=== PATIENT | male | born 1985 | race Caucasian/White ===

== ENCOUNTER → 2023-01-03 10:35 | Outpatient (CLI) | payer OTHER, SELFPAY ==
--- NOTE | ~2023-01-03 | US_ITS ---
EXAMINATION: US scrotum doppler DATE: 01/03/2023 11:27 INDICATION: Right testicular pain. TECHNIQUE: Grayscale and Doppler ultrasound images of the testes were obtained. COMPARISON: None. FINDINGS: The right testis measures 4.6 x 2.2 x 2.7 cm. The left testis measures 4.8 x 2.5 x 2.2 cm. There is normal vascular flow to both testes. The right epididymis demonstrates an 8 mm cyst. The lef t epididymis demonstrates a 3 mm cyst. There is normal vascular flow in the epididymides. There is no varicocele or hydrocele. IMPRESSION: 1. Normal testes. Reviewed, dictated and finalized at location A. IMPRESSION: 1. Normal testes.
--- NOTE | ~2023-01-03 | US_ITS ---
EXAMINATION: US abdomen complete DATE: 01/03/2023 11:27 INDICATION: Early satiety. Nausea. TECHNIQUE: Multiple grayscale and Doppler ultrasound images of the abdomen were obtained. COMPARISON: None FINDINGS: Abdominal aorta is normal in caliber. Inferior vena cava is normal. The visualized portions of the head, body, and tail of the pancreas are normal. The liver is normal without focal lesion. Th ere is normal flow in main portal vein. The gallbladder is normal in size. No gallstones or gallbladd er wall thickening. There is a comet-tail artifact in the gallbladder wall, consistent with adenomyom atosis. There is no sonographic Alexis sign. The common duct is normal and measures 4 mm. The spleen is normal in size. The kidneys are normal in size. IMPRESSION: 1. No etiology for the patient's symptoms. Reviewed, dictated and finalized at location A.
== END ==
PROVIDERS: PCP Emergency Medicine; Visit Provider Emergency Medicine
DX: N50.811 Right testicular pain (principal)
CPT/HCPCS: 76700; 76870; 93976

== ENCOUNTER 2023-12-23 09:28 | Day surgery (SDC) | payer OTHER, SELFPAY ==
[2023-12-04 08:28] VITALS: BMI 22.6
--- NOTE | 2023-12-23 07:48 | WPDANESEPPF ---
Anes - Initial Pre Proc Eval Procedure: Operation Date: 12/23/23 12:00 Proposed Procedures p Esophagogastroduodenoscopy - Mikey Klein MD s Diagnostic Colonoscopy - Mikey Klein MD Date/Time: 12/23/23 07:48 Surgeon: Mikey Klein MD Pre Op Diagnosis: IBS diarrhea, early satiety Patient Data Age: 38 Gender: M Height: 1.68 m Weight: 63.503 kg Allergies Allergy/AdvReac Type Severity Reaction Status Date / Time No Known Allergies Allergy Verified 12/23/23 10:32 Home Medications Medication Instructions Recorded Confirmed Type multivitamin 1 tablet PO DAILY 12/09/23 12/23/23 History Patient hx anesthesia problems: none Family hx anesthesia problems: none Results Review: All pre-operative results and documents have been reviewed as part of the pre-operative evaluation. [facility] Social History Social History Smoking status: Current every day smoker Tobacco type: e-cigarettes/vaping Substance use: current Substance use type: marijuana Other substance usage details: daily Anes - Eval Final PreProcedure Day of Procedure 12/23/23 07:48 Patient weight: normal Heart: regular rate and rhythm Lungs: clear to auscultation and normal air movement Airway: Mallampati scale class II Neurological: alert and oriented Last oral intake: >/= 8 hours ASA classification: II Emergent: no Anesthetic plan: proceed Anesthesia type and monitoring: general GIVS and standard monitoring Results Review: All pre-operative results and documents have been reviewed as part of the pre-operative evaluation. Informed Consent: The patient's anesthetic plan and its attendant risks and benefits were discussed with the patient/family/POA. Questions were solicited and answers provided to the satisfaction of the patient/family/POA.
[2023-12-23 10:45] VITALS: BP 123/71; PULSE 84; RESP 16; TEMP 37; O2SAT 98; BMI 23.0
[2023-12-23] MEDS: LACTATED RINGERS 1,000 ML 150 ML IV CONT (11:07)
--- NOTE | 2023-12-23 11:20 | P.HP_ITS ---
History of Present Illness History of Present Illness Consent: Risks, benefits, and alternatives have been discussed and questions answered. Patient agrees to proceed with procedure. Chief complaint: IBS diarrhea, early satiety Narrative: Humphrey Brantley is a 38 year old male referred for both colonoscopy and EGD. patient reports extended periods of her appetite and early satiety associated with weight loss. Sometimes these episodes will last for months. Then he will feel better for many months. Apparently this cycle is been present for several years. Patient reports being under significant stress associated with anxiety. Patient is referred now for both colonoscopy and EGD to assess more thoroughly. He reports irregular bowel movements suggesting underlying irritable bowel syndrome. He denies any significant bleeding. Although old had 1 episode months. Review of Systems Review of Systems: All systems reviewed & are unremarkable except as noted in HPI and below PMFSH Social History Social History Smoking status: Current every day smoker Tobacco type: e-cigarettes/vaping Substance use: current Substance use type: marijuana Other substance usage details: daily Meds Home Medications and Allergies Home Medications Medication Instructions Recorded Confirmed Type multivitamin 1 tablet PO DAILY 12/09/23 12/23/23 History Allergies Allergy/AdvReac Type Severity Reaction Status Date / Time No Known Allergies Allergy Verified 12/23/23 10:32 Vital Signs Vital Signs - 24 hr 12/23/23 10:45 Temperature 98.6 F Pulse Rate 84 Respiratory Rate 16 Blood Pressure 123/71 Pulse Oximetry 98 Oxygen Delivery Room Air Exam Narrative: Physical exam reveals patient vital signs stable. HEENT exam is unremarkable. Patient is anicteric. Is are clear to auscultation and to percussion. Extra sounds. Abdomen bowel sounds are present soft nontender with no hepatosplenomegaly. Digital external rectal exam is normal. Assessment and Plan Assessment and plan (1) History of IBS: Code(s): Z87.19 - Personal history of other diseases of the digestive system Status: Acute Assessment and Plan: Patient reports irregular bowel habits. Colonoscopy has been requested. High- fiber diet is recommended. a balanced diet suggested. (2) Early satiety: Code(s): R68.81 - Early satiety Status: Acute Assessment and Plan: Patient reports prolonged several month episodes where he has early satiety and is full quickly. EGD is requested today.
[2023-12-23 13:01] VITALS: BP 119/66; PULSE 82; RESP 16; O2SAT 100
[2023-12-23 13:11] VITALS: BP 110/66; PULSE 85; RESP 14; O2SAT 100
[2023-12-23 13:21] VITALS: BP 119/81; PULSE 73; RESP 14; O2SAT 100
--- NOTE | 2023-12-23 14:19 | WPDANESPN ---
Anes - Prog Note Post-Op Date/Time: 12/23/23 14:19 Cardiovascular status: normal Respiratory status: normal Airway patency: baseline Mental status: baseline Post-Op hydration status: normal Vital Signs: Last Vital Signs Temp 37.0 C 12/23/23 10:45 Pulse 73 12/23/23 13:21 Resp 14 12/23/23 13:21 BP 119/81 12/23/23 13:21 Pulse Ox 100 12/23/23 13:21 O2 Del Method Room Air 12/23/23 13:21 Pain Score (VAS): 0 I/O: Intake & Output 12/22/23 12/23/23 12/23/23 23:59 07:59 15:59 Intake Total 850 Balance 850 Post-procedural complaints: none Patient Feedback: Patient satisfied with anesthetic care. Other Findings: Patient vital signs back to baseline. Patient denies nausea and vomiting. Patient's pain under control. Patient OK for discharge.
== END 2023-12-23 13:32 | disposition home or self-care (01) ==
PROVIDERS: PCP Emergency Medicine; Visit Provider Internal Medicine Gastroenterology
PROC: 0DJ08ZZ Inspection of Upper Intestinal Tract, Via Natural or Artificial Opening Endoscopic (ICD-10-PCS; CPT 43235; principal; 2023-12-23 12:00)
PROC: 0DJD8ZZ Inspection of Lower Intestinal Tract, Via Natural or Artificial Opening Endoscopic (ICD-10-PCS; CPT 45378; 2023-12-23 12:00)
DX: R68.81 Early satiety (principal); R19.7 Diarrhea, unspecified; K59.00 Constipation, unspecified; K64.8 Other hemorrhoids
CPT/HCPCS: 45378; 43239

== ENCOUNTER 2024-08-24 19:53 | Emergency (ER) | payer OTHER, SELFPAY ==
[2024-08-24 19:55] VITALS: BP 149/78; PULSE 100; RESP 20; TEMP 36.3; O2SAT 100
--- NOTE | 2024-08-24 19:59 | ECG_ITS ---
Test Date: 2024-08-24 20:04:56 Measurements Intervals Erwin Rate: 98 P: 64 DC: 112 QRS: 47 QRSD: 80 T: 42 QT: 334 QTc: 427 Interpretive Statements SINUS RHYTHM WITH SHORT DC INTERVAL No previous ECG available for comparison Electronically Signed On 08-24-2024 20:36:49 REGIONAL OPERATIONS MANAGER by Carlene Patel M.D.
--- NOTE | 2024-08-24 21:30 | PC.NURSE ---
pt ambulatory to triage desk and states, I am feeling much better, I think I was just having an anxiety attack. I think I will just follow up with my pcp . this rn explained the risks of leaving prior to seeing a provider. pt verbalized understanding. pt was able to ambulate towards the exit of the ed with a steady unassisted gait.
--- OUTSIDE RECORDS SUMMARY | 2024-08-31 23:59 | XMS_ITS | Clinical Summary ---
Author Organization [facility] [address] Address [address] [place] [id number] Care Team Providers Care Work Station Support Specialist Name Role Phone Red Rowan MD Primary Care Provider [phone] Allergies No known active allergies Medications diclofenac sodium (VOLTAREN) 1 % gel Apply 2 g topically 4 (four) times a day 50 g 1 2 Active Additional Information Patient not taking.Reported on 08/25/2024 hydrOXYzine (ATARAX) 25 mg tablet Take 1 tablet (25 mg total) by mouth 3 (three) times a day 90 tablet 2 Active Active Problems Problem Noted Date Diagnosed Date Encounter for medical examination to establish c are 07/26/2021 Assessment & Plan (07/26/2021 3:23 PM ATTIC BLOWER): A initial well visit to establish care has been performed today. Humphrey Brantley is up to date on screening tests. He is in need of None- no screening indicated at this time- these have been ordered. He is up to date on needed preventative vaccinations. Awaiting labs Continue and finish keflex. Seemingly improving. The blister I would leave be, don't try to rupture. If we need to, we can get you in for incision and drainage if there is no further improvement by next week Metrogel trial ordered Weight loss may be a bit concerning; the baseline labs should be helpful in working that up a bit. Cystic acne vulgaris 07/23/2021 Bacterial conjunctivitis 01/29/2016 Overview (12/04/2016): Acute bacterial conjunctivitis of both eyes Encounters Date Type Department Care Team Description 08/26/2024 4:16 AM ATTIC BLOWER - 08/26/2024 4:41 AM ATTIC BLOWER Emergency [facility] Emergency Department [address] [place] [address] Discharge Disposition: Left without being seen 08/25/2024 2:45 PM ATTIC BLOWER Office Visit [facility] at [address] [phone] Hoa Gonzalez PA Dizziness (Primary Dx); Paresthesias from Last 3 Months Immunizations Name Administration Dates Next Due Influenza, Unspecified 06/14/2021 Medical History Medical History Date Comments Cystic acne vulgaris 07/23/2021 Family History Medical History Relation Name Comments Alcohol abuse Father Depression Father Substance Abuse Father Suicide Completion Father ALS Father's Sister late 60's Brain cancer Maternal Grandfather Throat cancer Maternal Grandfather Brain cancer Maternal Grandmother Lung cancer Maternal Grandmother Breast cancer Mother COPD Mother Cancer Other Family history of Cancer, unknown; ALS Paternal Grandfather late 60 s Emphysema Paternal Grandmother Relation Name Status Comments Father Father's Sister Maternal Grandfather Maternal Grandmother Mother Alive Other Paternal Grandfather Paternal Grandmother Social History Tobacco Use Types Packs/Day Years Used Date Smoking Tobacco: Every Day Vaping Smokeless Tobacco: Never Alcohol Use Standard Drinks/Week Comments No 0 (1 standard drink = 0.6 oz pur e alcohol) AUDIT-C Answer Date Recorded Q1: How often do you have a drink containing alc ohol? Never 07/23/2021 Average Number of Drinks Not on file 021 Q3: How often do you have si x or more drinks on one occasion? Never 07/23/2021 PHQ-2 Answer Date Recorded PHQ-2 Total Score (If total score is 3 or more points, staff should administer the PHQ-9) 0 07/23/2021 Personal Safety Answer Date Recorded Have you ever been in or are you currently in a harmful physical or emotional relationship or is someone making you feel afraid or unsafe? Denies 11/27/2023 Education Answer Date Recorded What is the highest level of school you have completed or the highest degree you have received? 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 on file Not on file Obstetrics History Last Filed Vital Signs Vital Sign Reading Time Taken Comments Blood Pressure 145/74 08/25/2024 2:57 PM ATTIC BLOWER Pulse 90 08/25/2024 2:57 PM ATTIC BLOWER Temperature 37.2 ??C (99 ??F) 08/25/2024 2:57 PM ATTIC BLOWER Respiratory Rate 18 08/25/2024 2:57 PM ATTIC BLOWER Oxygen Saturation 98% 08/25/2024 2:57 PM ATTIC BLOWER Inhaled Oxygen Concentration - - Weight 63 kg (139 lb) 08/25/2024 2:57 PM ATTIC BLOWER Height 167.6 cm (5' 5.98 ) 08/25/2024 2:57 PM CS T Body Mass Index 22.45 08/25/2024 2:57 PM ATTIC BLOWER Plan of Treatment Health Maintenance Due Date Last Done Comments Hepatitis C Screening 1984 Pneumococcal vaccine <65 (1 of 2 - PCV) 1990 DTaP/Tdap/Td Vaccine (1 - Tdap) 1995 Hepatitis B Screening 2002 Depression Screening 07/23/2022 07/23/2021, 07/23/2021 Regular Well Visit/Exam 18-64 07/23/2022 07/23/2021 Covid-19 Vaccine ( season) 2024 07/20/2021, 11/02/2020, 10/05/2020 Influenza Vaccine (#1) 2024 06/14/2021 HPV Vaccines Aged Out No longer eligi ble based on patient's age to complete this topic Varicella Vaccines Discontinued Procedures Procedure Name Priority Date/Time Associated Diagnosis Comments POC INFLUENZA A/B, COVID-19 ANTIGEN Routine 08/25/2024 3:17 PM ATTIC BLOWER Dizziness from Last 3 Months Results * POC Influenza A/B, COVID-19 antigen (08/25/2024 3:17 PM ATTIC BLOWER) Influenza A Ag, POC Negative Negative [facility] Influenza B Ag, POC Negative Negative [facility] COVID-19 Ag POC Presumptive Negative Presumptive Negative, Invalid [facility] Nasal 08/25/2024 3:17 PM ATTIC BLOWER us Hoa [place] POINT OF CARE TEST ORDER JENN Final Result [facility] [address] [place] [address], [facility] from Last 3 Months Insurance CHOICE [facility] H[facility]/PPO Address: [place] [address] Care Teams Work Station Support Specialist Relationship Specialty Start Date End Date Red Rowan MD [address] [facility] [address] [place] [address] PCP - General Family Medicine 11/27/23
--- OUTSIDE RECORDS SUMMARY | 2024-09-01 | XMS_ITS | Encounter Summary ---
Author Organization [facility] Address [address] [place] [address] Care Team Providers Care Boot Trimmer Name Role Phone Unavailable Primary Care Provider Unavailabl e Encounter Details Date Type Department Care Team ([facility] st Contact Info) Description 11/25/2014 2:02 PM CDT - 11/25/2014 2:42 PM CDT Hospital Encounter [facility] Deepak Swan MD [address] [place] [address] Pain in soft tissues of limb; Other foot sprain and strain; Accident; Unspecified place of occurrence; Plantar fascial fibromatosis; Personal history of tobacco use, presenting hazards to health Social History Tobacco Use Types Packs/Day Years Used Date Smoking Tobacco: Never Assessed Sex and Gender Information Value Date Recorded Sex Assigned at Not on file 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 Gender Identity Not on file Sexual Orientation Not on file documented as of this encounter Plan of Treatment Not on file documented as of this encounter Procedures Procedure Name Priority Date/Time Associated Diagnosis Comments XR FOOT 3+ VW Routine 11/25/2014 2:18 PM CDT documented in this encounter Results * XR Foot 3+ Vw (11/25/2014 2:18 PM CDT) Anatomical Region Laterality Modality N/A Radiographic Madelin ging 11/25/2014 2:18 PM CDT Narrative 11/27/2014 9:03 AM CDT XR Foot Min 3 Views R ??[id number] ??Acc#: ??[id number] DATE OF EXAM: ??Nov 25 2014 CLINICAL HISTORY: Right foot injury, right foot pain. RESULT: Three views obtained. ??No acute fracture or subluxation identified. ??Soft tissues and joints are unremarkable. IMPRESSION: NEGATIVE STUDY. Interpreting Physician: ??ANTHONY SHANNON M.D. ??Read on: ??Nov 26 2014 ??8:56A Transcribed by: ??ruchi ??On: Nov 26 2014 12:44P Approved Electronically by: ??ANTHONY SHANNON M.D. ??on: ??Nov 27 2014 ??9:03A Attending: ??, Requesting: ??ROSMERY WILSON Requesting Fax: ??-- Attending Fax: ??-- Attending ID: ?? Requesting ID: ??[id number] Report To 1 ID: ??[id number] Report To 1 Name: ??DR DEEPAK LAWTON Report To 1 FAX: ??-- NextGen Order #: Procedure Note Provider, MD Verna - 12/31/2016 XR Foot Min 3 Views [id number] Acc#: [id number] DATE OF EXAM: Nov 25 2014 CLINICAL HISTORY: Right foot injury, right foot pain. RESULT: Three views obtained. No acute fracture or subluxation identified. Softtissues and joints are unremarkable. IMPRESSION: NEGATIVE STUDY. Interpreting Physician: ANTHONY SHANNON M.D. Read on: Nov 26 2014 8:56A Transcribed by: ruhci On: Nov 26 2014 12:44P Approved Electronically by: ANTHONY SHANNON M.D. on: Nov 27 2014 9:03A Attending: , Requesting: ROSMERY WILSON Requesting Fax: -- Attending Fax: -- Attending ID: Requesting ID: [id number] Report To 1 ID: [id number] Report To 1 Name: DR DEEPAK LAWTON Report To 1 FAX: -- NextGen Order #: Historical Provider MD DUMONT XR PROCEDURES Final R esult documented in this encounter Visit Diagnoses Diagnosis Pain in soft tissues of limb Other foot sprain and strain Accident Unspecified accident Unspecified place of occurrence Plantar fascial fibromatosis Personal history of tobacco use, presenting hazards to health documented in this encounter
--- OUTSIDE RECORDS SUMMARY | 2024-09-01 | XMS_ITS | Encounter Summary ---
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 Gender Identity Not on file Sexual Orientation Not on file 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 on file Not on file documented as of this encounter Last Filed Vital Signs Vital Sign Reading Time Taken Comments Blood Pressure 131/81 11/27/2023 7:59 PM CDT Pulse 92 11/27/2023 7:59 PM CDT Temperature 36.8 ??C (98.3 ??F) 11/27/2023 7:59 PM CD T Respiratory Rate 16 11/27/2023 7:59 PM CDT Oxygen Saturation 99% 11/27/2023 7:59 PM CDT Inhaled Oxygen Concentration - - Weight 63.5 kg (140 lb) 11/27/2023 7:59 PM CDT Height - - Body Mass Index 22.6 07/23/2021 3:15 PM RFID SPECIALIST documented in this encounter Medications at Time of Discharge diclofenac sodium (VOLTAREN) 1 % gel Apply 2 g topically 4 (four) times a day 50 g 1 09/02/2021 documented as of this encounter Discharge Disposition Disposition Code Departure Means Destination Left Against Medical Advice documented in this encounter ED Notes * Hossein Franks RN - 11/27/2023 7:58 PM CDT Patient states he started having chest and jaw pain that radiated to his throat while he was doing dishes approximately 30 minutes ago. documented in this encounter Miscellaneous Notes * ED Triage Provider Note - Adonay Desai PA - 11/27/2023 8:18 PM CDT Rapid Medical Evaluation: S - 38-year-old male with history of daily smoker, and GERD presents with complaint of pain to his chest and throat. Patient was standing and doing dishes around 30 minutes prior to arrival. Suddenlyhad a sensation of a twisting/pulling sensation in his throat that began going into his chest. Sensa tion lasted for nearly 30 minutes. Denies chest discomfort at this time but still has a mild pulling sensation in his throat. Occasionally felt pain in his epigastrium. Denies nausea and vomiting. States his PCP is wanting him to get an EGD and colonoscopy. O - CONSTITUTIONAL: Well-appearing; well-nourished; in no apparent distress HEAD: Normocephalic; atraumatic EYES: PERRL; conjunctiva and sclera are clear bilaterally. ENT: canals normal; no rhinorrhea; oropharynx clear. NECK: Supple; non-tender; no cervical lymphadenopathy; trachea midline CARD: Regular rhythm. Rate WNL. RESP: Normal respiratory effort; breath sounds clear and equal bilaterally. ABD: Normal bowel sounds; non-distended; non-tender. MUSCULOSKELETAL: Normal ROM in all four extremities. SKIN: warm; dry; good turgor. NEURO: COA x 3. A - throat discomfort - possible esophageal spasm. Chest discomfort P - Triage ordered CBC, CMP, troponin series, ECG, and saline lock. Added on chest x-ray, GI cocktail, and baclofen. Patient to go to room when available. Note: Exam limited as patient was seated in a chair in triage. Voice recognition software [employer] was used to dictate and transcribe this document. Primer Powder Blender Wet variances may occur. Despite proofreading, typographical errors may occur. documented in this encounter Plan of Treatment Not on file documented as of this encounter Procedures Procedure Name Priority Date/Time Associated Diagnosis Comments XR CHEST PA LATERAL 2 VIEWS ED 11/27/2023 8:53 PM CDT TROPONIN T HIGH-SENSITIVITY SERIES (BASELINE, 2HR, 4HR, 6HR) STAT 11/27/2023 8:15 PM CDT EGFR STAT 11/27/2023 8:15 PM CDT DIFFERENTIAL AUTO STAT 11/27/2023 8:1 5 PM CDT CBC WITH AUTO DIFFERENTIAL STAT 11/27/2023 8:15 PM CDT COMPREHENSIVE METABOLIC PANEL STAT 11/27/2023 8:15 PM CDT ECG 12-LEAD STAT 11/27/2023 8:11 PM CDT documented in this encounter Results * XR Chest Pa Lateral 2 Vw (11/27/2023 8:53 PM CDT) Anatomical Region Laterality Modality Body, Chest N/A Computed Radiogr aphy 11/27/2023 8:59 PM CDT Narrative 11/27/2023 9:00 PM CDT EXAM DESCRIPTION: XR CHEST PA LATERAL 2 VIEWS REASON FOR STUDY: Chest discomfort ?? chest and jaw pain that radiated to his throat while he was doing dishes approximately 30 minutes ago. ? TECHNIQUE: 2 ??radiographic view(s) of the chest. COMPARISON: 11/07/2008, 11/25/2023 FINDINGS: LUNGS: The lungs are clear. ?? No focal pulmonary parenchymal consolidation, pleural effusion, or pneumothorax. ?? HEART/MEDIASTINUM: ??Cardiac silhouette normal in size. Mediastinal and hilar contours appear normal. LINES/TUBES: ??None. BONES: ??No acute osseous abnormality. IMPRESSION: No acute cardiopulmonary abnormality. THIS IS AN ELECTRONICALLY VERIFIED FINAL REPORT 11/27/2023 9:00 PM - Electronically signed by ??Oxana Gill M.D. AT: AT D: ??11/27/2023 9:00 PM T: ??11/27/2023 9:00 PM Report ID: [id number] Reading Location: [id number] Procedure Note Oxana Gill MD - 11/27/2023 EXAM DESCRIPTION: XR CHEST PA LATERAL 2 VIEWS REASON FOR STUDY: Chest discomfort chest and jaw pain that radiated to his throat while he was doing dishes approximately 30 minutes ago. TECHNIQUE: 2 radiographic view(s) of the chest. COMPARISON: 11/07/2008, 11/25/2023 FINDINGS: LUNGS: The lungs are clear. No focal pulmonary parenchymalconsolidation, pleural effusion, or pneumothorax. HEART/MEDIASTINUM: Cardiac silhouette normal in size. Mediastinal andhilar contours appear normal. LINES/TUBES: None. BONES: No acute osseous abnormality. IMPRESSION: No acute cardiopulmonary abnormality. THIS IS AN ELECTRONICALLY VERIFIED FINAL REPORT 11/27/2023 9:00 PM - Electronically signed by Oxana Gill M.D. AT: AT Report ID: [id number] Reading Location: [place] [address] us Adonay CASTANON IMG XR PROCEDURES Final Resu lt * eGFR (11/27/2023 8:15 PM CDT) eGFR 94 mL/min/1. 73 m2 Comment: Interpretive Data Reference Interval Normal ?>/= 90 mL/min/1.73m2 Mildly decreased* ? 60 - 89 mL/min/1.73m2 Mildly to moderately decreased ?45 - 59 mL/min/1.73m2 Moderately to severely decreased ??30 - 44 mL/min/1.73m2 Severely decreased ?15 - 29 mL/min/1.73m2 Kidney Failure ?< 15 ??mL/min/1.73m2 *Relative to young adult level Estimated glomerular filtration rate is determined by the 2020 CKD-EPI equation recommended by the National Kidney Foundation (A Unifying Approach to GFR Estimation: Recommendations of the NKF-ASK Task Force on Reassessing the Inclusion of Race in Diagnosing Kidney Disease, JASN 2020). The CKD-EPI equation should not be used for patients with unstable renal function and has not been validated in children and those over 70. Current interpretive data was last reviewed 2021. Blood 11/27/2023 8:15 PM CDT 11/27/2023 8:18 PM CDT Rayshawn Duncan MD LAB BLOOD ORDERABLES Final R esult [facility] ([place]) [facility] [place] [address] * Differential, auto (11/27/2023 8:15 PM CDT) Neutrophil abs 6.4 1.5 - 6.5 K/cumm Imm gran abs 0.0 0.0 - 0.1 K/cumm [facility] ([place]) Lymphocyte abs 2.2 0.8 - 3.3 K/cumm [facility] ([place]) Monocyte abs 0.5 0.2 - 0.8 K/cumm [facility] ([place]) Eosinophil abs 0.1 0.0 - 0.5 K/cumm [facility] ([place]) Basophil abs 0.0 0.0 - 0.1 K/cumm [facility] ([place]) Neutrophil pct 68.2 % [facility] ([place]) Comment: Interpretive Data Percent cell count reference ranges are not reported, since discordance with absolute values may lead to misinterpretation of CBC data. Current Interpretive Data was last revised on 2017. Imm gran pct 0.4 % [facility] ([place]) Comment: Interpretive Data Percent cell count reference ranges are not reported, since discordance with absolute values may lead to misinterpretation of CBC data. Current Interpretive Data was last revised on 2017. Lymphocyte pct 24.1 % [facility] ([place]) Comment: Interpretive Data Percent cell count reference ranges are not reported, since discordance with absolute values may lead to misinterpretation of CBC data. Current Interpretive Data was last revised on 2017. Monocyte pct 5.7 % [facility] ([place]) Comment: Interpretive Data Percent cell count reference ranges are not reported, since discordance with absolute values may lead to misinterpretation of CBC data. Current Interpretive Data was last revised on 2017. Eosinophil pct 1.2 % [facility] ([place]) Comment: Interpretive Data Percent cell count reference ranges are not reported, since discordance with absolute values may lead to misinterpretation of CBC data. Current Interpretive Data was last revised on 2017. Basophil pct 0.4 % [facility] ([place]) Comment: Interpretive Data Percent cell count reference ranges are not reported, since discordance with absolute values may lead to misinterpretation of CBC data. Current Interpretive Data was last revised on 2017. Blood 11/27/2023 8:15 PM CDT 11/27/2023 8:18 PM CDT Rayshawn Duncan MD LAB BLOOD ORDERABLES Final R esult Performing Organization Address City/[facility] Co de Phone Number [facility] ([place]) [address] [place] [address] * Troponin T high-sensitivity series (baseline, 2hr, 4hr, 6hr) (11/27/2023 8:15 PM CDT) Pathologist [facility] Trop T hs <6 <=22 ng/L Comment: Interpretive Data For further hscTnT resources including the diagnostic algorithm and an aid in interpretation, copy and paste this link: https://nrl.testcatalog.org/show/hsTrop Current Interpretive Data last revised 2020. Blood 11/27/2023 8:15 PM CDT 11/27/2023 8:18 PM CDT Rayshawn Duncan MD LAB BLOOD ORDERABLES Final R esult Performing Organization Address City/[facility] Co de Phone Number [facility] ([place]) [address] [place] [address] * Comprehensive metabolic panel (11/27/2023 8:15 PM CDT) Pathologist [facility] Sodium 138 135 - 145 mmol/L Potassium, pl 3.6 3.3 - 4.9 mmol/L [facility] ([place]) Chloride 102 97 - 110 mmol/L [facility] ([place]) CO2 25 22 - 32 mmol/L [facility] ([place]) Anion gap 11 2 - 15 mmol/L [facility] ([place]) BUN 11 6 - 25 mg/dL [facility] ([place]) Creatinine 1.04 0.80 - 1.30 mg/dL [facility] ([place]) Glucose 97 70 - 199 mg/dL [facility] ([place]) Comment: Interpretive Data Fasting glucose >/= 126 mg/dl is diagnostic for diabetes. ?? Fasting is defined as no caloric intake for at least 8 hours. Fasting glucose between 100 mg/dl to 125 mg/dl is diagnostic of prediabetes. In a patient with classic symptoms of hyperglycemia or hyperglycemic crisis, a random glucose >/= 200 mg/dl is diagnostic for diabetes. In the absence of unequivocal hyperglycemia, results should be confirmed by repeat testing. The classification and Diagnosis of Diabetes Diabetes Care 202; 46: S19-S40. Current interpretive data was last revised 2022. Calcium 9.4 8.5 - 10.3 mg/dL [facility] ([place]) Bilirubin, total 0.3 0.1 - 1.2 mg/dL [facility] ([place]) Protein, pl 7.4 6.5 - 8.5 g/dL [facility] ([place]) Albumin 4.6 3.5 - 5.0 g/dL [facility] ([place]) Alk phos 125 40 - 130 Units/L [facility] ([place]) ALT 30 7 - 55 Units/L [facility] ([place]) AST 25 10 - 50 Units/L [facility] ([place]) Blood 11/27/2023 8:15 PM CDT 11/27/2023 8:18 PM CDT Rayshawn Duncan MD LAB BLOOD ORDERABLES Final R esult [facility] [place] [address] * (ABNORMAL) CBC with auto differential (11/27/2023 8:15 PM CDT) WBC 9.3 3.8 - 9.9 K/cumm Hgb 14.8 13.0 - 17.5 g/dL [facility] ([place]) Hct 42.6 38.9 - 50.3 % [facility] ([place]) Plt 283 150 - 400 K/cumm [facility] ([place]) MPV 8.9(L) 9.1 - 12.3 fL [facility] ([place]) RBC 5.05 4.30 - 5.80 M/cumm [facility] ([place]) MCV 84.4 81.3 - 96.4 fL [facility] ([place]) MCH 29.3 27.1 - 33.3 pg [facility] ([place]) MCHC 34.7 32.3 - 35.7 g/dL [facility] ([place]) RDW CV 12.6 11.1 - 14.9 % [facility] ([place]) RDW SD 38.2 35.7 - 48.1 fL [facility] ([place]) NRBC abs 0.00 0.00 - 0.01 K/cumm [facility] ([place]) Blood (Blood, Venous) 11/27/2023 8:15 PM CDT 11/27/2023 8:18 PM CDT Rayshawn Duncan MD LAB BLOOD ORDERABLES Final R esult Performing Organization Address City/[facility] Co de Phone Number [facility] ([place]) [address] [facility] Department [place] [address] * ECG 12 lead (11/27/2023 8:11 PM CDT) 11/27/2023 8:11 PM CDT Narrative [facility] - 11/28/2023 4:21 PM CDT Vent Rate: 91 bpm RR Interval: 654 msec [place] Interval: 117 msec QRS Duration: 86 msec QT Interval: 348 msec QTC Interval: 397 msec P-R-T [place]: 72 - 52 - 59 degrees IMPRESSION: SINUS RHYTHM WITH SHORT [place] INTERVAL BORDERLINE ECG Electronically Signed By: Dev Carmona MD Rayshawn Duncan MD ECG ORDERABLES Final Result Performing Organization Address [facility] Co de Phone Number [facility] [employer] [facility] documented in this encounter Visit Diagnoses Not on filedocumented in this encounter Administered Medications Inactive Administered Medications - up to 3 most recent administrations Medication Order MAR Action Action Date Dose Rate Site al & mag hydroxide simethicone-lidocaine oral suspension mixture 40 mL, oral, Once, On Thu11/27/23 at 2012, For 1 dose Given 11/27/2023 8:22 PM CDT 40 mL baclofen (LIORESAL) tablet 10 mg 10 mg, oral, Once, On Thu11/27/23 at 2012, For 1 dose Given 11/27/2023 8:22 PM CDT 10 mg documented in this encounter Active and Recently Administered Medications Times are shown in CDT. Scheduled Medication Order 11/25/2023 11/26/2023 11/27/2023 al & mag hydroxide simethicone-lidocaine oral suspension mixture (COMPLETED) 40 mL, oral, Once, On Thu11/27/23 at 2012, For 1 dose 2021 (Given - Provid er: Paige Earl RN) baclofen (LIORESAL) tablet 10 mg (COMPLETED) 10 mg, oral, Once, On Thu11/27/23 at 2012, For 1 dose 2021 (Given - Provid er: Paige Earl RN) documented in this encounter Orders IV Count Last Ordered Date First Orde red Date SALINE LOCK IV 1 11/27/2023 documented in this encounter Care Teams Cellular Phone Repairer Relationship Specialty Start Date End Date Red Rowan MD [address] [place] [id number] PCP - General Family Medicine 11/27/23 documented as of this encounter
--- OUTSIDE RECORDS SUMMARY | 2024-09-01 | XMS_ITS | Encounter Summary ---
Author Organization [facility] Healthcare Address [address] [place] [address] Care Team Providers Care Precision Farming Specialist Name Role Phone Unavailable Primary Care Provider Unavailabl e Encounter Details Date Type Department Care Team ([facility] st Contact Info) Description 11/24/2013 12:11 PM CDT - 11/24/2013 4:15 PM CDT Hospital Encounter [facility] Carlitos Robledo [address] [place] [address] Acute gastritis; Tobacco use disorder; Irritable colon Social History Tobacco Use Types Packs/Day Years Used Date Smoking Tobacco: Never Assessed Sex and Gender Information Value Date Recorded Sex Assigned at Not on file 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 Gender Identity Not on file Sexual Orientation Not on file documented as of this encounter Plan of Treatment Not on file documented as of this encounter Procedures Procedure Name Priority Date/Time Associated Diagnosis Comments URINALYSIS Routine 11/24/2013 2:50 PM CDT SERUM LIPASE Routine 11/24/2013 2:40 PM CDT SERUM COMPREHENSIVE METABOLIC PANEL Routine 11/24/2013 2:40 PM CDT SERUM AMYLASE Routine 11/24/2013 2:40 PM CDT BLOOD WBC CELL MORPHOLOGIC EXAM, AUTO Routine 11/24/2013 2:40 PM CDT BLOOD CELL COUNT (CBC) Routine 4 2:40 PM CDT DISCHARGE LABORATORY CUMULATIVE REPORT Routine 11/24/2013 12:00 AM CDT documented in this encounter Results * (ABNORMAL) Urinalysis (11/24/2013 2:50 PM CDT) Color, ur YELLOW YELLOW HISTORICAL RESULTS Clarity, ur CLEAR CLEAR HISTORIC AL RESULTS Specific gravity, ur 1.025 1.000 - 1.030 gu HISTORICAL RESULTS Leukocyte esterase, ur Negative NEGATIVE HISTORICAL RESULTS Nitrites, ur Negative NEGATIVE HISTORI EDNA RESULTS pH, ur 7.0 6.0 HISTORICAL RESULTS Protein, ur Negative NEGATIVE HISTORIC AL RESULTS Glucose, ur Negative NEGATIVE HISTORIC AL RESULTS Ketones, ur 40 NEGATIVE HISTORIC AL RESULTS Urobilinogen, quant, ur 1.0 0.2 - 1.0 mg/dl HISTORICAL RESULTS Bilirubin, ur SMALL(A) NEGATIVE HISTOR ICAL RESULTS U Blood Negative NEGATIVE HISTORICAL RESULTS Urine 11/24/2013 2:50 PM CDT Carlitos Hussein LAB BLOOD ORDERABLES Final Resu lt Performing Organization Address [facility] de Phone Number HISTORICAL RESULTS * Serum lipase (11/24/2013 2:40 PM CDT) Pathologist [facility] Lip 85 70 - 400 Units/L HISTORICAL RESULTS Serum 11/24/2013 2:40 PM CDT [facility]OD ORDERABLES Final Resu lt Performing Organization Address City/[facility] de Phone Number HISTORICAL RESULTS * Blood cell count (CBC) (11/24/2013 2:40 PM CDT) Pathologist [facility] WBC 10.1 4.0 - 10.5 K/cumm HISTORICAL RESULTS RBC 5.02 4.60 - 6.20 M/cumm HISTORICAL RESULTS Hgb 14.6 14.0 - 18.0 g/dl HISTORICAL RESULTS Hct 42.0 40.0 - 54.0 % HISTORICAL RESULTS MCV 83.7 77.0 - 97.0 fl HISTORICAL RESULTS MCH 29.1 23.0 - 34.0 pg HISTORICAL RESULTS MCHC 34.8 32.0 - 36.0 g/dl HISTORICAL RESULTS Rdw 12.8 11.5 - 14.5 % HISTORICAL RESULTS Platelets 311 150 - 450 K/cumm HISTORICAL RESULTS MPV 8.6 7.4 - 10.4 fl HISTORICAL RESULTS Blood specimen (specimen) 11/24/2013 2:40 PM CDT Carlitos Hussein LAB BLOOD ORDERABLES Final Resu lt Performing Organization Address [facility] de Phone Number HISTORICAL RESULTS * Serum amylase (11/24/2013 2:40 PM CDT) Milady, sr 44 25 - 115 IUnits/L HISTORICAL RESULTS Comment:PLEASE SEE NEW REFER ENCE RANGE Serum 11/24/2013 2:40 PM CDT Carlitos Hussein LAB BLOOD ORDERABLES Final Resu lt Performing Organization Address [facility] de Phone Number HISTORICAL RESULTS * (ABNORMAL) Blood WBC cell morphologic exam, auto (11/24/2013 2:40 PM CDT) Pathologist [facility] Lymphocytes 15.5(L) 25.0 - 33.0 % HISTORICAL RESULTS Monos 4.6 1.0 - 13.0 % HISTORICAL RESULTS Neutrophils 78.8(H) 53.0 - 69.0 % HISTORICAL RESULTS Eosinophils 0.6 0.0 - 10.0 % HISTORICAL RESULTS Basophils 0.2 0.0 - 1.0 % HISTORICAL RESULTS Immature granulocytes 0.3 0.0 - 1.0 % HISTORICAL RESULTS Lymphocytes, abs 1.6 1.2 - 3.4 K/cumm HISTORICAL RESULTS Monocytes, absolute 0.5(L) 1.1 - 1.9 K/cumm HISTORICAL RESULTS Neutrophils, abs 8.0(H) 1.4 - 6.5 K/cumm HISTORICAL RESULTS Eosinophils, abs 0.1 0.0 - 0.7 cells/cum m HISTORICAL RESULTS Basophils, abs 0.0 0.0 - 0.2 K/cumm HISTORICAL RESULTS Immature granulocyte, abs 0.0(H) 0.0 - 0.0 K/cumm HISTORICAL RESULTS Blood specimen (specimen) 11/24/2013 2:40 PM CDT Carlitos Robledo LAB BLOOD ORDERABLES Final Resu lt HISTORICAL RESULTS * (ABNORMAL) Serum comprehensive metabolic panel (11/24/2013 2:40 PM CDT) BUN 15.0 6.0 - 23.0 mg/dl HISTORICAL RESULTS Sodium 140 134 - 143 mmol/L HISTORICAL RESULTS Potassium, sr 4.6 3.4 - 5.0 mmol/L HISTORICAL RESULTS Chloride 104 99 - 108 mmol/L HISTORICAL RESULTS CO2 30 23 - 32 mmol/L HISTORICAL RESULTS Glucose 91 70 - 199 mg/dl HISTORICAL RESULTS Comment: Note:The glucose is assumed non fasting Fastin-99 mg/dl Random: 70-199 mg/dl Either a fasting glucose > 126 mg/dL or a random glucose > 200 mg/dL plus symptoms is diagnostic of diabetes when confirmed on another day. Fasting values > 100 mg/dl but < 125 mg/dL are diagnostic of impaired fasting glucose. New reference ranges implemented 07/11/2013. Creatinine 1.11 0.60 - 1.30 mg/dl HISTORICAL RESULTS Comment: eGFR: >70 ml/min/1.73sq.m if non -Pu[place]ican. eGFR: >70 ml/min/1.73sq.m if -Puerto Rican. AVE GFR for 20-29 yr. age group: ??116 ml/min/1.73sq.m Calculated using the MDRD Equation BUN/creat ratio 14 10 - 20 HIST ORICAL RESULTS A. gap 10 7 - 14 mmol/L HISTORICAL RESULTS Protein, sr 7.4 6.4 - 8.0 g/dl HISTORICAL RESULTS Alb 3.7 3.3 - 4.5 g/dl HISTORICAL RESULTS Alb/glob ratio 1.0(L) 1.1 - 1.8 HISTO RICAL RESULTS Calcium 9.3 8.6 - 9.8 mg/dl HISTORICAL RESULTS Bilirubin 0.4 0.0 - 1.1 mg/dl HISTORICAL RESULTS Alk phos 150(H) 44 - 125 Units/L HISTORICAL RESULTS AST 12 10 - 45 Units/L HISTORICAL RESULTS Comment:AST - NOTE REFERENCE RANGE CHANGE ALT 20 15 - 70 Units/L HISTORICAL RESULTS Serum 11/24/2013 2:40 PM CDT us Carlitos Robledo LAB BLOOD ORDERABLES Final Resu lt HISTORICAL RESULTS * Discharge Laboratory Cumulative Report (11/24/2013 12:00 AM CDT) 11/24/2013 Narrative HISTORICAL RESULTS - 11/25/2013 12:33 AM CDT Patient No: [id number] ? [facility] Patient Name: MORGAN MON ? [facility] Healthcare Age: 28 YRS ?: 1985 ?Sex:M ?[address] )[id number] ?? Adm Dt: 11/24/2013 ?[place], [place] ??[id number] Created: 11/25/2013 ??0033 ?? Pt. Type: E ? Discharge Dt: 11/24/2013 ? Pathologists: Melissa Matthews MD Admit DrGabbie Attend : CARLITOS ROBLEDO MD ? BLOOD CELL COUNTS ?Collection Date: ?11/24/13 ?Collection Time: ?1440 ? Ref Range: ?? Units: [4.00-10.50] /CMM ? WBC X 10^3 ? 10.08 [4.60-6.20] ??/CMM ? RBC X 10^6 ?5.02 [14.0-18.0] ??G/DL ? HGB ? 14.6 [40.0-54.0] ??% ?HCT ? 42.0 [77.0-97.0] ??FL ? MCV ? 83.7 [23.0-34.0] ??PG ? MCH ? 29.1 [32.0-36.0] ??% ?MCHC ?34.8 [11.5-14.5] ??% ?RDW ? 12.8 [150-450] ?? /CMM ? PLT X 10^3 ? 311 ?BLOOD CELL DIFFERENTIAL ?Collection Date: ?11/24/14 ?Collection Time: ?1440 ? Ref Range: ?? Units: [53.0-69.0] ??% ?NEUTROPHILS ? 78.8 H [25.0-33.0] ??% ?LYMPHOCYTES ? 15.5 L [1.0-13.0] ??% ?MONOCYTES ?4.6 [0.0-10.0] ??% ?EOSINOPHILS ?0.6 [0.0-1.0] ?? % ?BASOPHILS ?0.2 ? /CMM ? A LYMPHOCYTE ? 1.6 [0.0-1.0] ?? % ?IMM GRAN % ? 0.3 [0.00-0.02] ??/CMM ? A IMM GRAN ?0.03 H [1.1-1.9] ?? /CMM ? A MONOCYTE ? 0.5 L [1.4-6.5] ?? /CMM ? A NEUTROPHIL ? 8.0 H [0.0-0.7] ?? /CMM ? A EOSINOPHIL ? 0.1 [0.0-0.2] ?? /CMM ? A BASOPHIL ? 0.0 Footnotes and Symbols: L = Low, H = High ?? CONTINUED ?Page: ?? 1 Patient No: [id number] ? [facility] Patient Name: MORGAN MON ? [facility] Healthcare Age: 28 YRS ?: 1985 ?Sex:M ?[address] )[phone] ?? Adm Dt: 11/24/2013 ?[place], [place] ??[id number] Created: 11/25/2013 ??0033 ?? Pt. Type: E ? Discharge Dt: 11/24/2013 ? Pathologists: Melissa Matthews MD Admit Attend Dr: CARLITOS ROBLEDO MD ? GENERAL CHEMISTRY ?Collection Date: ?11/24/13 ?Collection Time: ?1440 ? Ref Range: ?? Units: [134-143] ?? MMOL/L ? SODIUM ? 140 [3.4-5.0] ?? MMOL/L ? POTASSIUM ?4.6 [99.0-108.0] MMOL/L ? CHLORIDE ? 104.0 [23.0-32.0] ??MMOL/L ? TOTAL CO2 ? 30.5 ?? [7-14] ?MMOL/L ? ANION GAP ? 10 ??[70-199] ?? MG/DL ?GLUCOSE ? 91 f [6.4-8.0] ?? G/DL ? TOTAL PROTEIN ?7.4 [3.3-4.5] ?? G/DL ? ALBUMIN ?3.7 [1.1-1.8] ?A/G RATIO ?1.0 L [8.6-9.8] ?? MG/DL ?CALCIUM ?9.3 [0.0-1.1] ?? MG/DL ?BILI TOTAL ? 0.4 ??[44-125] ?? U/L ?ALK PHOS ? 150 H ??[10-45] ?U/L ?AST(SGOT) ? 12 f ??[15-70] ?U/L ?ALT(SGPT) ? 20 f [6.0-23.0] ??MG/DL ?BUN ? 15.0 ??[10-20] ? B/C RATIO ? 14 Footnotes and Symbols: L = Low, H = High, f = Footnote GLUCOSE (08/02/13 -- Current) Note:The glucose is assumed non fasting Fastin-99 mg/dl Random: 70-199 mg/dl Either a fasting glucose > 126 mg/dL or a random glucose > 200 mg/dL plus symptoms is diagnostic of diabetes when confirmed on another day. Fasting values > 100 mg/dl but < 125 mg/dL are diagnostic of impaired fasting glucose. New reference ranges implemented 07/11/2013. AST(SGOT) (02/09/13 -- Current) AST ??- NOTE REFERENCE RANGE CHANGE ALT(SGPT) (03/22/13 -- Current) ?? CONTINUED ?Page: ?? 2 Patient No: [id number] ? [facility] Patient Name: MORGAN MON ? [facility] Healthcare Age: 28 YRS ?: 1985 ?Sex:M ?[address] )[id number] ?? Adm Dt: 11/24/2013 ?[place], [place] ??[id number] Created: 11/25/2013 ??0033 ?? Pt. Type: E ? Discharge Dt: 11/24/2013 ? Pathologists: Melissa Matthews MD Admit DrGabbie Attend Dr: CARLITOS ROBLEDO MD ? GENERAL CHEMISTRY ?Collection Date: ?11/24/13 ?Collection Time: ?1440 ? Ref Range: ?? Units: [0.60-1.30] ??MG/DL ?CREATININE ?1.11 f ?11/24/13 1440 eGFR: >70 ml/min/1.73sq.m if non -Puerto [place]ican. eGFR: >70 ml/min/1.73sq.m if -Puerto Rican. AVE GFR for 20-29 yr. age group: ??116 ml/min/1.73sq.m Calculated using the MDRD Equation FOOTNOTE ADDED ON ?? 11/24/13 ?? AT 1528 BY 999 ??[25-115] ?? U/L ?AMYLASE ? 44 f ??[70-400] ?? U/L ?LIPASE ?85 ?URINALYSIS ?Collection Date: ?03/27/14 ?Collection Time: ?1450 ? Ref Range: ?? Units: [YELLOW] ? U COLOR ? YELLOW ??[CLEAR] ? U APPEARANCE ? CLEAR [1.000-1.030] ? U SPEC GRAVITY ? 1.025 [NEGATIVE] ?U LEUKO ESTRASE ? NEGATIVE [NEGATIVE] ?U NITRITE ? NEGATIVE ?? [6.0] ?U PH ? 7.0 [NEGATIVE] ?U PROTEIN ? NEGATIVE [NEGATIVE] ?U GLUCOSE ? NEGATIVE [NEGATIVE] ?U KETONES ? 40 Footnotes and Symbols: f = Footnote AMYLASE (07/17/10 -- Current) PLEASE SEE NEW REFERENCE RANGE ?? CONTINUED ?Page: ?? 3 Patient No: [id number] ? [facility] Patient Name: MORGAN MON ? [facility] Age: 28 YRS ?: 1985 ?Sex:M ?[address] )[phone] ?? Adm Dt: 11/24/2013 ?[place] ??[id number] Created: 11/25/2013 ??0033 ?? Pt. Type: E ? Discharge Dt: 11/24/2013 ? Pathologists: Melissa Matthews MD Admit Attend Dr: CARLITOS ROBLEDO MD ?URINALYSIS ?Collection Date: ?11/24/13 ?Collection Time: ?1450 ? Ref Range: ?? Units: [0.2- 1.0] ?UROBILINOGEN ? 1.0 [NEGATIVE] ?U BILIRUBIN ?SMALL * [NEGATIVE] ?U BLOOD ? NEGATIVE Footnotes and Symbols: * = Abnormal ?? END OF CHART ? Page: ?? 4 us Historical Provider LAB BLOOD ORDERABLES Ailin mclaughlin Result HISTORICAL RESULTS documented in this encounter Visit Diagnoses Diagnosis Acute gastritis Acute gastritis without mention of hemorrhage Tobacco use disorder Irritable colon documented in this encounter
--- OUTSIDE RECORDS SUMMARY | 2024-09-01 | XMS_ITS | Encounter Summary ---
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
--- OUTSIDE RECORDS SUMMARY | 2024-09-01 | XMS_ITS | Encounter Summary ---
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
--- OUTSIDE RECORDS SUMMARY | 2024-09-01 | XMS_ITS | Encounter Summary ---
Author Organization [facility] Healthcare Address [address] [place] [address] Care Team Providers Care Machine Spring Former Name Role Phone Unavailable Primary Care Provider Unavailabl e Encounter Details Date Type Department Care Team ([facility] st Contact Info) Description 04/17/2007 10:48 AM CDT - 04/17/2007 11:30 AM CDT Hospital Encounter [facility] CLINCONV Ron Ruby MD 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
--- OUTSIDE RECORDS SUMMARY | 2024-09-01 | XMS_ITS | Encounter Summary ---
Author Organization [facility] Healthcare Address [address] [place] [address] Care Team Providers Care Linux Support Engineer Name Role Phone Unavailable Primary Care Provider Unavailabl e Encounter Details Date Type Department Care Team (Late st Contact Info) Description 11/23/2013 3:50 PM CDT - 11/23/2013 11:19 PM CDT Hospital Encounter [facility] Megha Ruby MD [facility] [place] [address] Abdominal pain of other specified site; Abdominal pain, periumbilical; Tobacco use disorder Social History Tobacco Use Types Packs/Day Years Used Date Smoking Tobacco: Never Assessed Sex and Gender Information Value Date Recorded Sex Assigned at Not on file Legal Sex Male 2:40 PM SCOW HAND Gender Identity Not on file Sexual Orientation Not on file documented as of this encounter Plan of Treatment Not on file documented as of this encounter Procedures Procedure Name Priority Date/Time Associated Diagnosis Comments CT ABDOMEN PELVIS W CONTRAST Routine 11/23/2013 10:17 PM CDT URINALYSIS Routine 11/23/2013 10:05 PM CDT SERUM LIPASE Routine 11/23/2013 7:30 PM CDT SERUM COMPREHENSIVE METABOLIC PANEL Routine 11/23/2013 7:30 PM CDT SERUM AMYLASE Routine 11/23/2013 7:30 PM CDT PLASMA PROTHROMBIN TIME (PT) Routine 11/23/2013 7:30 PM CDT PLASMA PARTIAL THROMBOPLASTIN TIME (PTT) Routine 11/23/2013 7:30 PM CDT BLOOD WBC CELL MORPHOLOGIC EXAM, AUTO Routine 11/23/2013 7:30 PM CDT BLOOD CELL COUNT (CBC) Routine 4 7:30 PM CDT DISCHARGE LABORATORY CUMULATIVE REPORT Routine 11/23/2013 12:00 AM CDT documented in this encounter Results * CT Abdomen Pelvis W Contrast (11/23/2013 10:17 PM CDT) Anatomical Region Laterality Modality Body N/A Computed Tomogra phy 11/23/2013 10:1 7 PM CDT Narrative 11/24/2013 3:[address] Abd/Pel W ?[id number] ??Acc#: ??[id number] DATE OF EXAM: ??Nov 23 2013 CLINICAL HISTORY: Midabdominal pain for four days. RESULT: Following oral and IV contrast (100 ml Optiray 320) administration, spiral axial scans were obtained from lung bases to ischial tuberosities. ??Delayed scans through the kidneys and urinary bladder following urinary tract opacification were also obtained. ??Axial and coronal reformatted images were reviewed. ??Comparison is made to previous stone protocol CT without contrast on [address] abdomen and pelvis with contrast on 06 May 2007. Lung bases are clear. ??Liver, gallbladder, bile ducts, pancreas, spleen, adrenal glands, kidneys, ureters, urinary bladder, prostate gland, abdominal aorta and inferior vena cava appear normal. ??No gastrointestinal mass, dilatation or wall thickening is seen. Stool is present in colon from cecum to descending colon with minimal amount of stool and air from descending colon to rectum. ??No lymphadenopathy or ascites is seen. ??Abdominal and pelvic wall structures appear intact. Bony structures appear normal. IMPRESSION: NORMAL CT ABDOMEN AND PELVIS WITH CONTRAST. Report called to Dr. Ruby in Emergency Department on 23 November 2013 at 2235 hours. Interpreting Physician: ??DR LAZ ZUÑIGA M.D. ??Read on: ??Nov 23 2013 10:50P Transcribed by: ??KVNG ??On: Nov 24 2013 10:02A Approved Electronically by: ??YOGESH Sierra, DR NESBITT ??on: ??Nov 24 2013 3:55P Ordering DR: DR MEGHA RUBY Attending DR: PHYSICIAN NO Procedure Note Provider, Verna, - 12/31/2016 CT Abd/Pel W [id number] Acc#: [id number] DATE OF EXAM: Nov 23 2013 CLINICAL HISTORY: Midabdominal pain for four days. RESULT: Following oral and IV contrast (100 ml Optiray 320) administration,spiral axial scans were obtained from lung bases to ischial tuberosities.Delayed scans through the kidneys and urinary bladder following urinarytract opacification were also obtained. Axial and coronal reformattedimages were reviewed. Comparison is made to previous stone protocol CTwithout contrast on [address] abdomen and pelvis withcontrast on 06 May 2007. Lung bases are clear. Liver, gallbladder,bile ducts, pancreas, spleen, adrenal glands, kidneys, ureters, urinarybladder, prostate gland, abdominal aorta and inferior vena cava appearnormal. No gastrointestinal mass, dilatation or wall thickening is seen.Stool is present in colon from cecum to descending colon with minimalamount of stool and air from descending colon to rectum. Nolymphadenopathy or ascites is seen. Abdominal and pelvic wall structuresappear intact. Bony structures appear normal. IMPRESSION: NORMAL CT ABDOMEN AND PELVIS WITH CONTRAST. Report called to Dr. Ruby inEmergency Department on 23 November 2013 at 2235 hours. Interpreting Physician: DR LAZ ZUÑIGA M.D. Read on: Nov 23 201310:50P Transcribed by: KVNG On: Nov 24 2013 10:02A Approved Electronically by: YOGESH Sierra, DR NESBITT on: Nov 24 20133:55P Ordering DR: DR MEGHA RUBY Attending DR: PHYSICIAN NO us Historical Provider IMGeorgette CT PROCEDURES Final R esult * Urinalysis (11/23/2013 10:05 PM CDT) Color, ur YELLOW YELLOW HISTORICAL RESULTS Clarity, ur CLEAR CLEAR HISTORIC AL RESULTS Specific gravity, ur 1.010 1.000 - 1.030 gu HISTORICAL RESULTS Leukocyte esterase, ur Negative NEGATIVE HISTORICAL RESULTS Nitrites, ur Negative NEGATIVE HISTORI EDNA RESULTS pH, ur 5.5 6.0 HISTORICAL RESULTS Protein, ur Negative NEGATIVE HISTORIC AL RESULTS Glucose, ur Negative NEGATIVE HISTORIC AL RESULTS Ketones, ur 40 NEGATIVE HISTORIC AL RESULTS Urobilinogen, quant, ur 0.2 0.2 - 1.0 mg/dl HISTORICAL RESULTS Bilirubin, ur Negative NEGATIVE HISTOR ICAL RESULTS U Blood Negative NEGATIVE HISTORICAL RESULTS Urine 11/23/2013 10:0 5 PM CDT Laura Salcedo MD LAB BLOOD ORDERABLES Final Result Performing Organization Address [facility] Co de Phone Number HISTORICAL RESULTS * Plasma partial thromboplastin time (PTT) (11/23/2013 7:30 PM CDT) APTT 29.5 -<35. seconds HISTOR ICAL RESULTS Plasma 11/23/2013 7:30 PM CDT Megha Ruby MD LAB BLOOD ORDERABLES Final Result Performing Organization Address [facility] de Phone Number HISTORICAL RESULTS * Plasma prothrombin time (PT) (11/23/2013 7:30 PM CDT) Prothrombin time (PT) 13.9 11.1 - 14.4 seconds HISTORICAL RESULTS INR 1.11 HISTORICAL RESULTS Comment: RECOMMENDED RANGES FOR PROTIME INR: NOTE: THE INR HAS BEEN VALIDATED ONLY FOR PATIENTS ON STABLE ORAL ?ANTICOAGULANT THERAPY. ?2.0 - 3.0 ??PROPHYLAXIS OF VENOUS THROMBOSIS (HIGH RISK SURGERY) ?2.0 - 3.0 ??TREATMENT OF VENOUS THROMBOSIS ?2.0 - 3.0 ??TREATMENT OF PULMONARY EMBOLISM ?2.0 - 3.0 ??PREVENTION OF SYSTEMIC EMBOLISM ? TISSUE HEART VALVES ? AMI (TO PREVENT SYSTEMIC EMBOLISM)* ? VALVULAR HEART DISEASE ? ATRIAL FIBRILLATION ?2.5 - 3.5 ??MECHANICAL PROSTHETIC VALVES (HIGH RISK) ?2.0 - 3.0 ??BILEAFLET MECHANICAL VALVE IN AORTIC POSITION *If oral anticoagulant therapy is elected to prevent recurrent myocardial infarction, an INR of 2.5 to 3.5 is recommended, consistent with Food and Drug Administration recommendations. Plasma 11/23/2013 7:30 PM CDT Megha Ruby MD LAB BLOOD ORDERABLES Final Result HISTORICAL RESULTS * Serum lipase (11/23/2013 7:30 PM CDT) Lip 82 70 - 400 Units/L HISTORICAL RESULTS Serum 11/23/2013 7:30 PM CDT Laura Salcedo MD LAB BLOOD ORDERABLES Final Result HISTORICAL RESULTS * Blood cell count (CBC) (11/23/2013 7:30 PM CDT) WBC 9.2 4.0 - 10.5 K/cumm HISTORICAL RESULTS RBC 5.41 4.60 - 6.20 M/cumm HISTORICAL RESULTS Hgb 16.0 14.0 - 18.0 g/dl HISTORICAL RESULTS Hct 44.7 40.0 - 54.0 % HISTORICAL RESULTS MCV 82.6 77.0 - 97.0 fl HISTORICAL RESULTS MCH 29.6 23.0 - 34.0 pg HISTORICAL RESULTS MCHC 35.8 32.0 - 36.0 g/dl HISTORICAL RESULTS Rdw 12.6 11.5 - 14.5 % HISTORICAL RESULTS Platelets 325 150 - 450 K/cumm HISTORICAL RESULTS MPV 8.8 7.4 - 10.4 fl HISTORICAL RESULTS Blood specimen (specimen) 11/23/2013 7:30 PM CDT us Laura Salcedo MD LAB BLOOD ORDERABLES Final Result HISTORICAL RESULTS * Serum amylase (11/23/2013 7:30 PM CDT) Pathologist [facility] Milady, sr 46 25 - 115 IUnits/L HISTORICAL RESULTS Comment:PLEASE SEE NEW REFER ENCE RANGE Serum 11/23/2013 7:30 PM CDT Laura Salcedo MD LAB BLOOD ORDERABLES Final Result Performing Organization Address [facility]/ZIP Co de Phone Number HISTORICAL RESULTS * (ABNORMAL) Blood WBC cell morphologic exam, auto (11/23/2013 7:30 PM CDT) [facility] Lymphocytes 26.1 25.0 - 33.0 % HISTORICAL RESULTS Monos 6.4 1.0 - 13.0 % HISTORICAL RESULTS Neutrophils 66.3 53.0 - 69.0 % HISTORICAL RESULTS Eosinophils 0.7 0.0 - 10.0 % HISTORICAL RESULTS Basophils 0.2 0.0 - 1.0 % HISTORICAL RESULTS Immature granulocytes 0.3 0.0 - 1.0 % HISTORICAL RESULTS Lymphocytes, abs 2.4 1.2 - 3.4 K/cumm HISTORICAL RESULTS Monocytes, absolute 0.6(L) 1.1 - 1.9 K/cumm HISTORICAL RESULTS Neutrophils, abs 6.1 1.4 - 6.5 K/cumm HISTORICAL RESULTS Eosinophils, abs 0.1 0.0 - 0.7 cells/cumm HISTORICAL RESULTS Basophils, abs 0.0 0.0 - 0.2 K/cumm HISTORICAL RESULTS Immature granulocyte, abs 0.0(H) 0.0 - 0.0 K/cumm HISTORICAL RESULTS Blood specimen (specimen) 11/23/2013 7:30 PM CDT Laura Salcedo MD LAB BLOOD ORDERABLES Final Result Performing Organization Address City/[facility]/ZIP Co de Phone Number HISTORICAL RESULTS * (ABNORMAL) Serum comprehensive metabolic panel (11/23/2013 7:30 PM CDT) [facility] BUN 13.0 6.0 - 23.0 mg/dl HISTORICAL RESULTS Sodium 137 134 - 143 mmol/L HISTORICAL RESULTS Potassium, sr 3.7 3.4 - 5.0 mmol/L HISTORICAL RESULTS Chloride 101 99 - 108 mmol/L HISTORICAL RESULTS CO2 28 23 - 32 mmol/L HISTORICAL RESULTS Glucose 77 70 - 199 mg/dl HISTORICAL RESULTS Comment: [...] glucose. New reference ranges implemented 07/11/2013. Creatinine 1.19 0.60 - 1.30 mg/dl HISTORICAL RESULTS Comment: eGFR: >70 ml/min/1.73sq.m if non -Georgian. eGFR: >70 ml/min/1.73sq.m if -Georgian. AVE GFR for 20-29 yr. age group: ??116 ml/min/1.73sq.m Calculated using the MDRD Equation BUN/creat ratio 11 10 - 20 HIST ORICAL RESULTS A. gap 12 7 - 14 mmol/L HISTORICAL RESULTS Protein, sr 8.0 6.4 - 8.0 g/dl HISTORICAL RESULTS Alb 4.2 3.3 - 4.5 g/dl HISTORICAL RESULTS Alb/glob ratio 1.1 1.1 - 1.8 HISTO RICAL RESULTS Calcium 9.3 8.6 - 9.8 mg/dl HISTORICAL RESULTS Bilirubin 0.6 0.0 - 1.1 mg/dl HISTORICAL RESULTS Alk phos 168(H) 44 - 125 Units/L HISTORICAL RESULTS AST 15 10 - 45 Units/L HISTORICAL RESULTS Comment:AST - NOTE REFERENCE RANGE CHANGE ALT 21 15 - 70 Units/L HISTORICAL RESULTS Serum 11/23/2013 7:30 PM CDT us Laura Salcedo MD LAB BLOOD ORDERABLES Final Result HISTORICAL RESULTS * Discharge Laboratory Cumulative Report (11/23/2013 12:00 AM CDT) 11/23/2013 Narrative HISTORICAL RESULTS - 11/25/2013 12:33 AM CDT Patient No: [id number] ? [facility] Patient Name: MORGAN MON ? [facility] Age: 28 YRS ?: 1985 ?Sex:M ?[address] )[phone] ?? Adm Dt: 11/23/2013 ?[place], [place] ??[id number] Created: 11/25/2013 ??0033 ?? Pt. Type: E ? Discharge Dt: 11/23/2013 ? Pathologists: Melissa Matthews MD Admit Attend Dr: MEGHA RUBY MD ? BLOOD CELL COUNTS ?Collection Date: ?11/23/13 ?Collection Time: ?1930 ? Ref Range: ?? Units: [4.00-10.50] /CMM ? WBC X 10^3 ?9.15 [4.60-6.20] ??/CMM ? RBC X 10^6 ?5.41 [14.0-18.0] ??G/DL ? HGB ? 16.0 [40.0-54.0] ??% ?HCT ? 44.7 [77.0-97.0] ??FL ? MCV ? 82.6 [23.0-34.0] ??PG ? MCH ? 29.6 [32.0-36.0] ??% ?MCHC ?35.8 [11.5-14.5] ??% ?RDW ? 12.6 [150-450] ?? /CMM ? PLT X 10^3 ? 325 ?BLOOD CELL DIFFERENTIAL ?Collection Date: ?11/23/13 ?Collection Time: ?1930 ? Ref Range: ?? Units: [53.0-69.0] ??% ?NEUTROPHILS ? 66.3 [25.0-33.0] ??% ?LYMPHOCYTES ? 26.1 [1.0-13.0] ??% ?MONOCYTES ?6.4 [0.0-10.0] ??% ?EOSINOPHILS ?0.7 [0.0-1.0] ?? % ?BASOPHILS ?0.2 ? /CMM ? A LYMPHOCYTE ? 2.4 [0.0-1.0] ?? % ?IMM GRAN % ? 0.3 [0.00-0.02] ??/CMM ? A IMM GRAN ?0.03 H [1.1-1.9] ?? /CMM ? A MONOCYTE ? 0.6 L [1.4-6.5] ?? /CMM ? A NEUTROPHIL ? 6.1 [0.0-0.7] ?? /CMM ? A EOSINOPHIL ? 0.1 [0.0-0.2] ?? /CMM ? A BASOPHIL ? 0.0 Footnotes and Symbols: L = Low, H = High ?? CONTINUED ?Page: ?? 1 Patient No: [id number] ? [facility] Patient Name: MORGAN MON ? [facility] Age: 28 YRS ?: 1985 ?Sex:M ?[address] )[phone] ?? Adm Dt: 11/23/2013 ?[place], [place] ??[id number] Created: 11/25/2013 ??0033 ?? Pt. Type: E ? Discharge Dt: 11/23/2013 ? Pathologists: Melissa Matthews MD Admit Attend Dr: MEGHA RUBY MD ? GENERAL CHEMISTRY ?Collection Date: ?11/23/13 ?Collection Time: ?1930 ? Ref Range: ?? Units: [134-143] ?? MMOL/L ? SODIUM ? 137 [3.4-5.0] ?? MMOL/L ? POTASSIUM ?3.7 [99.0-108.0] MMOL/L ? CHLORIDE ? 101.0 [23.0-32.0] ??MMOL/L ? TOTAL CO2 ? 28.2 ?? [7-14] ?MMOL/L ? ANION GAP ? 12 ??[70-199] ?? MG/DL ?GLUCOSE ? 77 f [6.4-8.0] ?? G/DL ? TOTAL PROTEIN ?8.0 [3.3-4.5] ?? G/DL ? ALBUMIN ?4.2 [1.1-1.8] ?A/G RATIO ?1.1 [8.6-9.8] ?? MG/DL ?CALCIUM ?9.3 [0.0-1.1] ?? MG/DL ?BILI TOTAL ? 0.6 ??[44-125] ?? U/L ?ALK PHOS ? 168 H ??[10-45] ?U/L ?AST(SGOT) ? 15 f ??[15-70] ?U/L ?ALT(SGPT) ? 21 f [6.0-23.0] ??MG/DL ?BUN ? 13.0 ??[10-20] ? B/C RATIO ? 11 Footnotes and Symbols: H = High, f = Footnote GLUCOSE [...] ?? CONTINUED ?Page: ?? 2 Patient No: [id number] ? [facility] Patient Name: MORGAN MON ? [facility] Age: 28 YRS ?: 1985 ?Sex:M ?[address] )[phone] ?? Adm Dt: 11/23/2013 ?[place] ??[id number] Created: 11/25/2013 ??0033 ?? Pt. Type: E ? Discharge Dt: 11/23/2013 ? Pathologists: Melissa Matthews MD Admit Attend : MEGHA RUBY MD ? GENERAL CHEMISTRY ?Collection Date: ?11/23/13 ?Collection Time: ?1930 ? Ref Range: ?? Units: [0.60-1.30] ??MG/DL ?CREATININE ?1.19 f ?11/23/13 1930 eGFR: >70 ml/min/1.73sq.m if non -Georgian. eGFR: >70 ml/min/1.73sq.m if -Georgian. AVE GFR for 20-29 yr. age group: ??116 ml/min/1.73sq.m Calculated using the MDRD Equation FOOTNOTE ADDED ON ?? 11/23/13 ?? AT 2034 BY 999 ??[25-115] ?? U/L ?AMYLASE ? 46 f ??[70-400] ?? U/L ?LIPASE ?82 Footnotes and Symbols: f = Footnote AMYLASE (07/17/10 -- Current) PLEASE SEE NEW REFERENCE RANGE ?? CONTINUED ?Page: ?? 3 Patient No: [id number] ? [facility] Patient Name: MORGAN MON ? [facility] Age: 28 YRS ?: 1985 ?Sex:M ?[address] )[phone] ?? Adm Dt: 11/23/2013 ?[place] ??[id number] Created: 11/25/2013 ??0033 ?? Pt. Type: E ? Discharge Dt: 11/23/2013 ? Pathologists: Melissa Matthews MD Admit Dr. Sloan Dr: MEGHA RUBY MD ?COAGULATION ? Units: ?? PROTIME ?INR ?APTT PAT ? Low: ??[11.1-14.4] ? [< ?? 35.4] ? Ref Range: ? SECS ?SECS ? 11/23/131929 ?13.9 ? 1.11 f ? 29.5 Footnotes and Symbols: f = Footnote INR (03/19/00 -- Current) RECOMMENDED RANGES FOR PROTIME INR: NOTE: THE INR HAS BEEN VALIDATED ONLY FOR PATIENTS ON STABLE ORAL ?ANTICOAGULANT THERAPY. ?2.0 - 3.0 ??PROPHYLAXIS OF VENOUS THROMBOSIS (HIGH RISK SURGERY) ?2.0 - 3.0 ??TREATMENT OF VENOUS THROMBOSIS ?2.0 - 3.0 ??TREATMENT OF PULMONARY EMBOLISM ?2.0 - 3.0 ??PREVENTION OF SYSTEMIC EMBOLISM ? TISSUE HEART VALVES ? AMI (TO PREVENT SYSTEMIC EMBOLISM)* ? VALVULAR HEART DISEASE ? ATRIAL FIBRILLATION ?2.5 - 3.5 ??MECHANICAL PROSTHETIC VALVES (HIGH RISK) ?2.0 - 3.0 ??BILEAFLET MECHANICAL VALVE IN AORTIC POSITION *If oral anticoagulant therapy is elected to prevent recurrent myocardial infarction, an INR of 2.5 to 3.5 is recommended, consistent with Food and Drug Administration recommendations. ?? CONTINUED ?Page: ?? 4 Patient No: [id number] ? [facility] Patient Name: MORGAN MON ? [facility] Age: 28 YRS ?: 1985 ?Sex:M ?[address] )[phone] ?? Adm Dt: 11/23/2013 ?[place], [place] ??[address] Created: 11/25/2013 ??0033 ?? Pt. Type: E ? Discharge Dt: 11/23/2013 ? Pathologists: Melissa Matthews MD Admit Attend Dr: MEGHA RUBY MD ?URINALYSIS ?Collection Date: ?11/23/13 ?Collection Time: ?2205 ? Ref Range: ?? Units: [YELLOW] ? U COLOR ? YELLOW ??[CLEAR] ? U APPEARANCE ? CLEAR [1.000-1.030] ? U SPEC GRAVITY ? 1.010 [NEGATIVE] ?U LEUKO ESTRASE ? NEGATIVE [NEGATIVE] ?U NITRITE ? NEGATIVE ?? [6.0] ?U PH ? 5.5 [NEGATIVE] ?U PROTEIN ? NEGATIVE [NEGATIVE] ?U GLUCOSE ? NEGATIVE [NEGATIVE] ?U KETONES ? 40 [0.2- 1.0] ?UROBILINOGEN ? 0.2 [NEGATIVE] ?U BILIRUBIN ? NEGATIVE [NEGATIVE] ?U BLOOD ? NEGATIVE ?? END OF CHART ? Page: ?? 5 us Historical Provider MD LAB BLOOD ORDERABLES Ailin l Result HISTORICAL RESULTS documented in this encounter Visit Diagnoses Diagnosis Abdominal pain of other specified site Abdominal pain, periumbilical Abdominal pain, periumbilic Tobacco use disorder documented in this encounter
--- OUTSIDE RECORDS SUMMARY | 2024-09-01 | XMS_ITS | Encounter Summary ---
Author Organization [facility] Healthcare Address [address] [place] [id number] Care Team Providers Care City Assessor Name Role Phone Dioni Maurice MD Primary Care Provider [phone] Encounter Details Date Type Department Care Team (Late st Contact Info) Description 07/23/2021 5:55 PM TUBE AND MANIFOLD BUILDER Lab [address] [address] Weight loss, non-intentional; Screening, lipid; Infection of index finger Social History Tobacco Use Types Packs/Day Years [...] on file Legal Sex Male 2:40 PM TUBE AND MANIFOLD BUILDER Gender Identity Not on file Sexual Orientation Not on file 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 on file Not on file documented as of this encounter Plan of Treatment Not on file documented as of this encounter Procedures Procedure Name Priority Date/Time Associated Diagnosis Comments EGFR Routine 07/23/2021 3:47 PM TUBE AND MANIFOLD BUILDER Infection of index finger DIFFERENTIAL AUTO Routine 07/23/2021 3:4 7 PM TUBE AND MANIFOLD BUILDER Infection of index finger THYROID FUNCTION CASCADE Routine 07/23/2021 3:47 PM TUBE AND MANIFOLD BUILDER Weight loss, non-intentional CBC WITH AUTO DIFFERENTIAL Routine 07/23/2021 3:47 PM TUBE AND MANIFOLD BUILDER Infection of index finger LIPID PANEL Routine 07/23/2021 3:47 PM TUBE AND MANIFOLD BUILDER Screening, lipid COMPREHENSIVE METABOLIC PANEL Routine 07/23/2021 3:47 PM TUBE AND MANIFOLD BUILDER Infection of index finger documented in this encounter Results * eGFR (07/23/2021 3:47 PM TUBE AND MANIFOLD BUILDER) eGFR 110 mL/min/1.7 3 m2 JORDAN CORTES Comment: Interpretive Data Reference Interval Normal ?>/= 90 mL/min/1.73m2 Mildly decreased* ? 60 - 89 mL/min/1.73m2 Mildly to moderately decreased ?45 - 59 mL/min/1.73m2 Moderately to severely decreased ??30 - 44 mL/min/1.73m2 Severely decreased ?15 - 29 mL/min/1.73m2 Kidney Failure ?< 15 ??mL/min/1.73m2 *Relative to young adult level Estimated glomerular filtration rate is determined by the CKD-EPI equation recommended by the National Kidney Foundation (KDIGO 2012 Clinical Practice Guideline for the Evaluation and Management of Chronic Kidney Disease. Kidney Intnl Suppl Aug 2012;3:1). The CKD-EPI equation should not be used for patients with unstable renal function and has not been validated in children and those over 70. Current interpretive data was last reviewed 2020 Blood 07/23/2021 3:47 PM TUBE AND MANIFOLD BUILDER 07/23/2021 6:27 PM TUBE AND MANIFOLD BUILDER Dioni Maurice MD LAB BLOOD ORDERABLES Final Result [facility] [id number] Department [place] [address] * Differential, auto (07/23/2021 3:47 PM TUBE AND MANIFOLD BUILDER) Neutrophil abs 4.6 1.7 - 6.5 K/cumm [facility] Imm gran abs 0.0 0.0 - 0.1 K/cumm [facility] Lymphocyte abs 1.9 0.8 - 3.3 K/cumm [facility] Monocyte abs 0.5 0.2 - 0.8 K/cumm [facility] Eosinophil abs 0.1 0.0 - 0.5 K/cumm [facility] Basophil abs 0.0 0.0 - 0.1 K/cumm [facility] Neutrophil pct 65.0 % [facility] Comment: Interpretive Data Percent cell count reference ranges are not reported, since discordance with absolute values may lead to misinterpretation of CBC data. Current Interpretive Data was last revised on 2017. Imm gran pct 0.4 % [facility] Comment: Interpretive Data Percent cell count reference ranges are not reported, since discordance with absolute values may lead to misinterpretation of CBC data. Current Interpretive Data was last revised on 2017. Lymphocyte pct 26.5 % [facility] Comment: Interpretive Data Percent cell count reference ranges are not reported, since discordance with absolute values may lead to misinterpretation of CBC data. Current Interpretive Data was last revised on 2017. Monocyte pct 6.8 % [facility] Comment: Interpretive Data Percent cell count reference ranges are not reported, since discordance with absolute values may lead to misinterpretation of CBC data. Current Interpretive Data was last revised on 2017. Eosinophil pct 0.9 % [facility] Comment: Interpretive Data Percent cell count reference ranges are not reported, since discordance with absolute values may lead to misinterpretation of CBC data. Current Interpretive Data was last revised on 2017. Basophil pct 0.4 % [facility] Comment: Interpretive Data Percent cell count reference ranges are not reported, since discordance with absolute values may lead to misinterpretation of CBC data. Current Interpretive Data was last revised on 2017. Blood 07/23/2021 3:47 PM TUBE AND MANIFOLD BUILDER 07/23/2021 6:12 PM TUBE AND MANIFOLD BUILDER Dioni Maurice MD LAB BLOOD ORDERABLES Final Result Performing Organization Address [facility] Co de Phone Number JORDAN [phone] [place] [address] * CBC with auto differential (07/23/2021 3:47 PM TUBE AND MANIFOLD BUILDER) Pathologist [facility] WBC 7.0 3.8 - 9.9 K/cumm [facility] Hgb 14.1 13.0 - 17.5 g/dL [facility] Hct 43.1 38.9 - 50.3 % [facility] Plt 299 150 - 400 K/cumm [facility] MPV 9.6 9.1 - 12.3 fL [facility] RBC 4.91 4.30 - 5.80 M/cumm [facility] MCV 87.8 81.3 - 96.4 fL [facility] MCH 28.7 27.1 - 33.3 pg [facility] MCHC 32.7 32.3 - 35.7 g/dL [facility] RDW CV 12.9 11.1 - 14.9 % [facility] RDW SD 41.6 35.7 - 48.1 fL [facility] NRBC abs 0.00 0.00 - 0.01 K/cumm [facility] Blood 07/23/2021 3:47 PM TUBE AND MANIFOLD BUILDER 07/23/2021 6:12 PM TUBE AND MANIFOLD BUILDER Dioni Maurice MD LAB BLOOD ORDERABLES Final Result Performing Organization Address [facility] Co de Phone Number JORDAN SOPHIA [phone] Department [employer] [place] [address] * (ABNORMAL) Comprehensive metabolic panel (07/23/2021 3:47 PM TUBE AND MANIFOLD BUILDER) Sodium 140 135 - 145 mmol/L [facility] Potassium, pl 4.0 3.3 - 4.9 mmol/L [facility] Chloride 103 97 - 110 mmol/L [facility] CO2 27 22 - 32 mmol/L [facility] Anion gap 10 2 - 15 mmol/L [facility] BUN 6(L) 8 - 25 mg/dL [facility] Creatinine 0.89 0.80 - 1.30 mg/dL [facility] Glucose 85 70 - 199 mg/dL [facility] Comment: Interpretive Data Fasting glucose >/= 126 [...] classification and Diagnosis of Diabetes Diabetes Care 2017;40 (Suppl. 1):S11. Current interpretive data was last revised 2017. Calcium 9.5 8.5 - 10.3 mg/dL [facility] Bilirubin, total 0.3 0.1 - 1.2 mg/dL [facility] Protein, pl 7.2 6.5 - 8.5 g/dL [facility] Albumin 4.5 3.5 - 5.0 g/dL [facility] Alk phos 107 40 - 130 Units/L [facility] ALT 7 7 - 55 Units/L [facility] AST 17 10 - 50 Units/L [facility] Blood 07/23/2021 3:47 PM TUBE AND MANIFOLD BUILDER 07/23/2021 6:12 PM TUBE AND MANIFOLD BUILDER us Dioni Maurice MD LAB BLOOD ORDERABLES Final Result JORDAN CORTES [id number] [place] [address] * Lipid panel (07/23/2021 3:47 PM TUBE AND MANIFOLD BUILDER) Cholesterol 171 30 - 199 mg/dL [facility] Comment: Interpretive Data Ages < or = 19 years ??Acceptable: ? <170 mg/dL ??Borderline high: ??170-199 mg/dL ??High: ? >or= 200 mg/dL Ages > or = 20 years ??Desirable: ?<200 mg/dL ??Borderline high: ??200-239 mg/dL ??High: ? >or= 240 mg/dL Literature References: 1. Expert Panel on Integrated Guidelines for Cardiovascular Health and Risk Reduction in Children and Adolescents. Pediatrics 2011;128:S213 2. NCEP Expert Panel. Circulation 2004;110:227 Current Interpretive Data was last revised on 2018. Triglycerides 86 <=149 mg/dL JORDAN CORTES Comment: Interpretive Data Ages < or = 9 years ??Acceptable: ? <75 mg/dL ??Borderline high: ??75-99 mg/dL ??High: ? >or= 100 mg/dL Ages 10 to 20 years ??Acceptable: ? <90 mg/dL ??Borderline high: ??90-129 mg/dL ??High: ? >or= 130 mg/dL Ages > or = 20 years ??Desirable: ?<150 mg/dL ??Borderline high: ??150-199 mg/dL ??High: ? 200-499 mg/dL ?Very high: ?? >or= 499 mg/dL Literature References: 1. Expert Panel on Integrated Guidelines for Cardiovascular Health and Risk Reduction in Children and Adolescents. Pediatrics 2011;128:S213 2. NCEP Expert Panel. Circulation 2004;110:227 Current Interpretive Data was last revised on 2018. HDL 53 >=40 mg/dL JORDAN CORTES Comment: Interpretive Data Ages < or = 19 years ??Acceptable: ? >45 mg/dL ??Borderline low: ?? 40-45 mg/dL ??Low: ? <40 mg/dL Ages > or = 20 years ??Desirable: ?>or= 60 mg/dL ??Low: ? <40 mg/dL Literature References: 1. Expert Panel on Integrated Guidelines for Cardiovascular Health and Risk Reduction in Children and Adolescents. Pediatrics 2011;128:S213 2. NCEP Expert Panel. Circulation 2004;110:227 Current Interpretive Data was last revised on 2018. LDL, calculated 101 <=129 mg/dL [facility] Comment: Interpretive Data Ages < or = 19 years ??Acceptable: ? <110 mg/dL ??Borderline high: ??110-129 mg/dL ??High: ?>or= 130 mg/dL Ages > or = 20 years ??Optimal: ? <100 mg/dL ??Near optimal: ?100-129 mg/dL ??Borderline high: ?? 130-159 mg/dL ??High: ?>160 mg/dL Literature References: 1. Expert Panel on Integrated Guidelines for Cardiovascular Health and Risk Reduction in Children and Adolescents. Pediatrics 2011;128:S213 2. NCEP Expert Panel. Circulation 2004;110:227 Current Interpretive Data was last revised on 2018. Non-HDL Cholesterol 118 mg/dL [facility] Comment: Interpretive Data Ages < or = 19 years ??Acceptable: ?<120 mg/dL ??Borderline high: ??120-144 mg/dL ??High: ?>145 mg/dL Ages > or = 20 years ??When triglycerides are >200 mg/dL, Non-HDL cholesterol is a secondary target of ? therapy with treatment goals that are 30 mg/dL greater than the LDL cholesterol target. ? Literature References: 1. Expert Panel on Integrated Guidelines for Cardiovascular Health and Risk Reduction in Children and Adolescents. Pediatrics 2011;128:S213 2. NCEP Expert Panel. Circulation 2004;110:227 Current Interpretive Data was last revised on 2018. Chol/HDL ratio 3 [facility] Blood 07/23/2021 3:47 PM TUBE AND MANIFOLD BUILDER 07/23/2021 6:12 PM TUBE AND MANIFOLD BUILDER us Dioni Maurice MD LAB BLOOD ORDERABLES Final Result Performing Organization Address City/[facility] Co al Phone Number JORDAN CORTES [phone] [place] [place] [address] * TSH reflex to free T4 (07/23/2021 3:47 PM TUBE AND MANIFOLD BUILDER) TSH 0.69 0.30 - 4.20 mcIUnit/mL [facility] Blood 07/23/2021 3:47 PM TUBE AND MANIFOLD BUILDER 07/23/2021 6:12 PM TUBE AND MANIFOLD BUILDER Dioni Maurice MD LAB BLOOD ORDERABLES Final Result Performing Organization Address [facility] Phone Number JORDAN [phone] Department [place] [address] documented in this encounter Visit Diagnoses Diagnosis Weight loss, non-intentional Loss of weight Screening, lipid Infection of index finger documented in this encounter Care Teams City Assessor Relationship Specialty Start Date End Date Dioni Maurice MD PCP - General Family Medicine 07/23/21 04/03/22 documented as of this encounter
--- OUTSIDE RECORDS SUMMARY | 2024-09-01 | XMS_ITS | Encounter Summary ---
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
--- OUTSIDE RECORDS SUMMARY | 2024-09-01 | XMS_ITS | Encounter Summary ---
Author Organization [facility] Healthcare Address [address] [place] [address] Care Team Providers Care Senior Software Engineer Name Role Phone Unavailable Primary Care Provider Unavailabl e Encounter Details Date Type Department Care Team (Late st Contact Info) Description 04/30/2007 10:06 AM CDT - 04/30/2007 3:14 PM CDT Hospital Encounter [facility]izu, Bailee Caraballo, COMPUTER HELP DESK SPECIALIST [address] [place] [address] Social History Tobacco Use Types Packs/Day Years Used Date Smoking Tobacco: Never Assessed Sex and Gender Information Value Date Recorded Sex Assigned at Not on file 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
--- OUTSIDE RECORDS SUMMARY | 2024-09-01 | XMS_ITS | Encounter Summary ---
Author Organization [facility] Healthcare Address [address] [place] [address] Care Team Providers Care Communications Professional Name Role Phone Unavailable Primary Care Provider Unavailabl e Encounter Details Date Type Department Care Team ([facility] st Contact Info) Description 11/24/2013 11:29 AM CDT - 11/24/2013 11:59 PM CDT Hospital Encounter [facility]INCON[facility] Ron Ruby MD [facility] [place] [address] Abdominal pain, right upper quadrant; Abnormal levels of other serum enzymes Social History Tobacco Use Types Packs/Day Years Used Date Smoking Tobacco: Never Assessed Sex and Gender Information Value Date Recorded Sex Assigned at Not on file 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 RESULT: Transverse and longitudinal orourke scale images of the upper abdomen were obtained. ??Correlation with a CT of the abdomen and pelvis from 11/23/13 is made. ??The pancreas is normal in size and echogenicity. ??The visible portions of the aorta and IVC demonstrate no abnormalities. ??The liver is normal in size and echogenicity. ??No gallstones, gallbladder wall thickening, or pericholecystic fluid is seen. ??The common bile duct measures 3.4mm in diameter which is normal. ??The right kidney measures 8.4 x 4.5 x 5.4cm. ??No suspicious solid or cystic right renal lesions are seen. ??No echogenic foci are noted to indicate nephrolith. IMPRESSION: NO GALLSTONES OR EVIDENCE OF ACUTE CHOLECYSTITIS. Interpreting Physician: ??PAYAL VELASQUEZ M.D. ??Read on: ??Nov 24 2013 12:20P Transcribed by: ??mrr ??On: Nov 24 2013 ??2:49P Approved Electronically by: ??PAYAL VELASQUEZ M.D. ??on: ??Nov 24 2013 2:51P Ordering DR: DR RON RUBY Attending DR: DR RON RUBY Procedure Note Provider, MD Verna - 12/31/2016 US Gallbladder Acc#: [id number] DATE OF EXAM: Nov 24 2013 CLINICAL HISTORY: Right upper quadrant pain. RESULT: Transverse and longitudinal orourke scale images of the upper abdomen wereobtained. Correlation with a CT of the abdomen and pelvis from 11/23/13 ismade. The pancreas is normal in size and echogenicity. The visibleportions of the aorta and IVC demonstrate no abnormalities. The liver isnormal in size and echogenicity. No gallstones, gallbladder wallthickening, or pericholecystic fluid is seen. The common bile ductmeasures 3.4mm in diameter which is normal. The right kidney measures 8.4 x 4.5 x 5.4cm. No suspicious solid or cystic right renal lesions areseen. No echogenic foci are noted to indicate nephrolith. IMPRESSION: NO GALLSTONES OR EVIDENCE OF ACUTE CHOLECYSTITIS. Interpreting Physician: PAYAL VELASQUEZ M.D. Read on: Nov 24 201312:20P Transcribed by: mrr On: Nov 24 2013 2:49P Approved Electronically by: PAYAL VELASQUEZ M.D. on: Nov 24 20132:51P Ordering DR: DR RON RUBY Attending DR: DR RON RUBY us Historical Provider MD DUMONT US PROCEDURES Final R esult documented in this encounter Visit Diagnoses Diagnosis Abdominal pain, right upper quadrant Abnormal levels of other serum enzymes documented in this encounter
--- OUTSIDE RECORDS SUMMARY | 2024-09-01 | XMS_ITS | Encounter Summary ---
Author Organization [facility] Healthcare Address [address] [place] [address] Care Team Providers Care Wharf Worker Name Role Phone Unavailable Primary Care Provider Unavailabl e Encounter Details Date Type Department Care Team (Late st Contact Info) Description 11/07/2008 9:27 AM CDT - 11/07/2008 10:36 AM CDT Hospital Encounter [facility] Ron Ruby MD [address] [place] [address] Pleurisy; Tobacco use disorder Social History Tobacco Use Types Packs/Day Years Used Date Smoking Tobacco: Never Assessed Sex and Gender Information Value Date Recorded Sex Assigned at Not on file 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
--- OUTSIDE RECORDS SUMMARY | 2024-09-01 | XMS_ITS | Encounter Summary ---
Author Organization [facility] Healthcare Address [address] [place] [address] Care Team Providers Care Fx Artist Name Role Phone Unavailable Primary Care Provider Unavailabl e Encounter Details Date Type Department Care Team (Late st Contact Info) Description 06/08/2015 5:55 PM CDT - 06/08/2015 11:59 PM CDT [facility] Dioni Maurice MD [address] [place] [address] Estella Feldman NP [address] [place] [address] Urinary tract infection Social History Tobacco Use Types Packs/Day Years Used Date Smoking Tobacco: Smoker, Current Status Unknown Alcohol Use Standard Drinks/Week Comments No 0 (1 standard drink = 0.6 oz pur e alcohol) Sex and Gender Information Value Date Recorded Sex Assigned at Not on file 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 Gender Identity Not on file Sexual Orientation Not on file documented as of this encounter Plan of Treatment Not on file documented as of this encounter Procedures Procedure Name Priority Date/Time Associated Diagnosis Comments URINE (AEROBIC) CULTURE, CDR Routine 06/08/2015 5:55 PM CDT DISCHARGE LABORATORY CUMULATIVE REPORT 06/08/2015 documented in this encounter Results * Urine (aerobic) culture (06/08/2015 5:55 PM CDT) Organism [id number] HISTORICAL RESULTS Urine, clean voided (Unknown) 06/08/2015 5:55 PM CDT Narrative HISTORICAL RESULTS - 06/13/2015 6:48 AM CDT Less than 10,000 colonies/ml of Enterobacter cloacae Organism Antibiotic Method Susceptibility Enterobacter cloacae Ampicillin Resistant Enterobacter cloacae Amoxicillin with Clavulanic Acid Resistant Enterobacter cloacae Aztreonam Susceptible Enterobacter cloacae Ceftriaxone Susceptible Enterobacter cloacae Ceftazidime Susceptible Enterobacter cloacae Cephalothin Resistant Enterobacter cloacae Cefoxitin Resistant Enterobacter cloacae Cefazolin Resistant Enterobacter cloacae Ciprofloxacin Susceptible Enterobacter cloacae Nitrofurantoin Resistant Enterobacter cloacae Piperacillin/Tazobactam Susceptible Enterobacter cloacae Trimethoprim with Sulfamethoxazol e Susceptible Enterobacter cloacae Tetracycline Susceptible Enterobacter cloacae Tobramycin Susceptible Historical Provider LAB MICROBIOLOGY - GENERA L ORDERABLES Final Result HISTORICAL RESULTS * DISCHARGE LABORATORY CUMULATIVE REPORT (06/08/2015) Narrative 06/08/2015 Ordered by an unspecified provider. us Historical Provider LAB BLOOD ORDERABLES Ailin l Result documented in this encounter Visit Diagnoses Diagnosis Urinary tract infection Urinary tract infection, site not specified documented in this encounter
--- OUTSIDE RECORDS SUMMARY | 2024-09-01 | XMS_ITS | Continuity of Care Document ---
Author Organization [facility] Address [address] [place] [address] [place] [address] Phone Care Team Providers Care Zipper Slide Attacher Name Role Phone Red Rowan MD Unavailable Unavailable Allergies, Adverse Reactions, Alerts Substance Reaction Status Criticality No Known Allergies Active No Inform ation Procedures Procedure Date OFFICE/OUTPATIENT VISIT, EST PREV VISIT, EST, AGE 18-39 OFFICE/OUTPATIENT VISIT, EST PREV VISIT, NEW, AGE 18-39 OFFICE/OUTPATIENT VISIT, NEW Advance Directives Directive Yes / No Effective Date File Name No Information Encounters Encounter Description Practice Location Reason(s) For Visit Diagnoses Date Provider Providers Copied on Encounter OFFICE/OUTPA TIENT VISIT, EST [facility], [address], [place], [address], [place] tel:[phone] [facility] Medicine GI1 (chief complaint) moles1 (chief complaint) Mixed irritable bowel syndromeNevus, non-neoplastic 4 Harpal Moon. [address], [place], [address]. tel:[phone] PREV VISIT, EST, AGE 18-39 [facility], [address], [place], [address], [place] tel:[phone] [facility] physical (chief complaint) Encounter for general adult medical examination without abnormal findings Nov- 4 Harpal Moon. [address], [address], [place], [address]. tel:[phone] OFFICE/OUTPA TIENT VISIT, [facility], [address], [place], [address], [place] tel:[phone] [facility] Medicine HLP (chief complaint) Iron (chief complaint) anxiety1 (chief complaint) palpitatio n1 (chief complaint) testicular pain1 (chief complaint) abd pain1 (chief complaint) Early satietyGeneralized Anxiety DisorderMixed irritable bowel syndromeRight testicular painMixed hyperlipidemiaIron deficiencyPalpitati ons May- 3 Harpal Moon. [address], [address], [place], [address]. tel:[phone] PREV VISIT, NEW, AGE 18-39 [facility], [address], [place], [address], [place] tel:[phone] [facility] physical (chief complaint) Encounter for general adult medical exam w abnormal findingsMixed irritable bowel syndromeEarly satietyRight testicular painOther insomniaGeneralized Anxiety Disorder Nov- 3 [facility]pal Moon. [address] [facility] [address], [place], [address]. tel:[phone] Family History Family Member Type Diagnosis Age At Onset Father Problem commit suicide 40s Mother Problem breast CA remission Paternal grandfather Problem of ALS Mother Problem emphysema Payers Payer name Insurance type Covered constitution party ID Authoriza tion(s) No Information Social History Type Description Quantity Date Captured Comments Alcohol Use Details wine 1 drink rarely Caffeine Use Details Unknown Tobacco Use Status Current non-smoker Smoking Status Never smoker Sex Male Vital Signs Date / Time: Height Weight BMI Pulse Rate Blood Pressure Temperature Respiratory Rate Body Surface Area Head Circumference BMI percentile Pulse Ox Inhaled Ox 3:12 PM 66.00 in 138.60 lbs 22.3 7 kg/m eter (2) 92 /min 130/68 mm[Hg] 98.6 F 16 /min Chief Complaint And Reason For Visit From encounter dated '03/22/2024 15:08'. GI1 (chief complaint). Description: Pt c/o early satiety and diarrhea and abdominal bloating. Pt had negative EGD and colonoscopy Pt had negative abdominal ultrasound. Pt currently feels more reassured since the endoscopy and he feels improvement of GI symptoms Pt denies any blood in stool .Pt denies any weight loss. moles1 (chief complaint). Description: Pt c/o multiple nevus on face and also on torso and some of them are growing in size Pt denies any bleeding Plan Of Treatment Date Type Action Status Referral Ordered: Dermatology (related to Nevus, non-neoplastic) ordered Referral Ordered: Referrals: Dermatology. Evaluate and treat ordered Referral Ordered: COLONOSCOPY AND BIOPSY ordered Referral Ordered: US TESTES-SCROTAL ordered Referral Ordered: OPERATIVE UPPER GI ENDOSCOPY ordered Referral Ordered: US EXAM, ABDOM, COMPLETE ordered History Of Present Illness Encounter Date Complaint History Of Prese nt Illness moles1 Pt c/o multiple nevus on face and also on torso and some of them are growing in size Pt denies any bleeding GI1 Pt c/o early sat iety and diarrhea and abdominal bloating. Pt had negative EGD and colonoscopy Pt had negative abdominal ultrasound. Pt currently feels more reassured since the endoscopy and he feels improvement of GI symptoms Pt denies any blood in stool .Pt denies any weight loss. physical Pt needs annual physical, Pt has chronic early satiety and some non bloody diarrhea. Pt denies any blood in stool pt notices bloating post food with some nausea Pt denies any abd pain Pt also has mild poor appetite. Pt never did the EGD and colonoscopy Pt no longer has any palpitation Pt denies any anxiety or depression Pt failed lexapro. Pt states that he was cooking in the kitchen last thursday and he felt sudden onset of sore throat, sweaty, pain around shoulder and chest and palpitation. He denies any sob or dizziness Pt went to ER and he had a GI cocktail and all symptoms instantly went away. Pt had negative EKG and chest x ray and lab and he ended up leaving the ER without seeing a doctor due to long wait Pt denies any recurrent symptoms. abd pain1 Pt denies any ab d pain Pt states that postprandial nausea and pain resolved Pt denies any early satiety ,Pt still has bloating and mixed diarrhea and constipation without blood in stool. Pt has not done EGD and colonoscopy yet testicular pain1 Pt states that testicular pain resolved. Pt had normal ultrasound palpitation1 Pt woke up sever al nights ago with palpitation and severe anxiety Pt denies any sob or chest pain Pt denies any exertional symptoms. anxiety1 Pt has chronic a nxiety and mild depression Pt denies any suicidal or homicidal thought Pt denies any crying spells . Pt recently quit marijuana ane he feels very anxious as well Iron Pt has mildly lo w iron saturation. Pt denies any blood in stool or any other bleeding .Pt denies any fatigue. Pt denies any sob HLP Pt has HLP Pt is working on diet physical Pt needs annual physical Pt notices a small nodule behind right testicle about 4 weeks ago. Pt denies any pain ,Pt denies any scrotum redness or warmth or swelling Pt denies any urinary symptoms Pt denies any injury. Pt c/o feeling early satiety and some nausea post food for two years. Pt has some weight swings and the lowest was 108 several months ago. Pt denies any loss of appetite. pt has hard time gaining any weight. Pt has some stomach upset and pain after drinking coffee and he drinks 1-2 pots of coffee daily Pt denies any GERD Pt has chronic constipation and diarrhea for 3 years with bright red blood x 1 time only two weeks ago but has not occurred yet since then Pt has some intermittent anxiety and depression and he is doing counseling now and doing ok Pt denies any suicidal or homicidal thought Pt denies any crying spells. pt took some xanax long time ago. pt also has some insomnia and he frequently jerks while falling asleep and he becomes wide awake and unable to fall back to sleep. Pt denies any abd pain Instructions Date Instruction Additional Infor mation No Information Assessments Type Assessment Date assessment Mixed irritable bowel syndrome J assessment Nevus, non-neoplastic Mental Status Date Cognitive Assessment Orientation - [place] ed to time, place, person, situation.
--- OUTSIDE RECORDS SUMMARY | 2024-09-01 | XMS_ITS | Encounter Summary ---
Author Organization [facility] Address [address] [facility] [address] [place] [address] Care Team Providers Care Cylinder Steamer Name Role Phone Dioni Maurice MD Primary Care Provider [phone] Reason for Visit * Reason Onset Date Comments Test Results 07/31/2021 labs Encounter Details Date Type Department Care Team ([facility] Contact Info) Description 07/31/2021 Telephone [facility] Primary Care at [address] [address] Dioni Maurice MD [address] [place] [address] [address] [place] [address] Test Results (labs) Social History Tobacco Use Types Packs/Day Years [...] on file Legal Sex Male 2:40 PM BROILER CHEF OR COOK Gender Identity Not on file Sexual Orientation Not on file 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 LER CHEF OR COOK documented in this encounter Plan of Treatment Not on file documented as of this encounter Visit Diagnoses Not on filedocumented in this encounter Care Teams Cylinder Steamer Relationship Specialty Start Date End Date Dioni Maurice MD PCP - General Family Medicine 07/23/21 04/03/22 documented as of this encounter
--- OUTSIDE RECORDS SUMMARY | 2024-09-01 | XMS_ITS | Referral Summary ---
Author Organization [address] Address [address] [place] [address] Care Team Providers Care Rim Buster Name Role Phone Red Rowan MD Primary Care Provider Encounters Date Type Department Care Team Description 08/26/2024 4:16 AM CANDLE MAKER - 08/26/2024 4:41 AM CANDLE MAKER Emergency [facility] Emergency Department [address] [place] [address] Discharge Disposition: Left without being seen 08/25/2024 2:45 PM CANDLE MAKER Office Visit [facility] Con[facility]ient Care at [address] [address] Hoa Gonzalez PA Dizziness (Primary Dx); Paresthesias from Last 3 Months Allergies No known active allergies Medications diclofenac [...] 07/26/2021 Assessment & Plan (07/26/2021 3:23 PM CANDLE MAKER): A initial well visit to establish care [...] (12/04/2016): Acute bacterial conjunctivitis of both eyes Immunizations Name Administration Dates Next Due Influenza, Unspecified 06/14/2021 Social History Tobacco Use Types Packs/Day Years [...] on file Legal Sex Male 2:40 PM CANDLE MAKER Gender Identity Not on file Sexual Orientation Not on file 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 on file Not on file Last Filed Vital Signs Vital Sign Reading Time Taken Comments Blood Pressure 145/74 08/25/2024 2:57 PM CANDLE MAKER Pulse 90 08/25/2024 2:57 PM CANDLE MAKER Temperature 37.2 ??C (99 ??F) 08/25/2024 2:57 PM CANDLE MAKER Respiratory Rate 18 08/25/2024 2:57 PM CANDLE MAKER Oxygen Saturation 98% 08/25/2024 2:57 PM CANDLE MAKER Inhaled Oxygen Concentration - - Weight 63 kg (139 lb) 08/25/2024 2:57 PM CANDLE MAKER Height 167.6 cm (5' 5.98 ) 08/25/2024 2:57 PM CS T Body Mass Index 22.45 08/25/2024 2:57 PM CANDLE MAKER Plan of Treatment Not on file Procedures Procedure Name Priority Date/Time Associated Diagnosis Comments POC INFLUENZA A/B, COVID-19 ANTIGEN Routine 08/25/2024 3:17 PM CANDLE MAKER Dizziness from Last 3 Months Results * POC Influenza A/B, COVID-19 antigen (08/25/2024 3:17 PM CANDLE MAKER) Influenza A Ag, POC Negative Negative [facility] Influenza B Ag, POC Negative Negative [facility] COVID-19 Ag POC Presumptive Negative Presumptive Negative, Invalid [facility] Nasal 08/25/2024 3:17 PM CANDLE MAKER us Hoa [place] POINT OF CARE TEST ORDER JENN Final Result Performing Organization Address City/State/[facility] Co de Phone Number [facility] [place] [address], [facility] from Last 3 Months Insurance CHOICE PLUS [facility] HMO/PPO Address: [facility] [id number] [place] [address] Care Teams Rim Buster Relationship Specialty Start Date End Date Red Rowan MD [address] [facility] [address] [place], [place] [id number] PCP - General Family Medicine 11/27/23
--- OUTSIDE RECORDS SUMMARY | 2024-09-01 | XMS_ITS | Encounter Summary ---
Author Organization [facility] Address [address] [place] [address] Care Team Providers Care Master Merchandiser Name Role Phone Unavailable Primary Care Provider Unavailabl e Encounter Details Date Type Department Care Team (Late st Contact Info) Description 05/19/2008 2:11 AM CDT - 05/19/2008 3:05 AM CDT Hospital Encounter [facility] Maxime Vera MD [address] [place] [address] Social History Tobacco Use Types Packs/Day Years Used Date Smoking Tobacco: Never Assessed Sex and Gender Information Value Date Recorded Sex Assigned at Not on file Legal Sex Male 2:40 PM MEDICAL HEALTH RESEARCHER Gender Identity Not on file Sexual Orientation Not on file documented as of this encounter Plan of Treatment Not on file documented as of this encounter Visit Diagnoses Not on filedocumented in this encounter
--- OUTSIDE RECORDS SUMMARY | 2024-09-01 | XMS_ITS | Encounter Summary ---
Author Organization [facility] Address [address] [facility] [address] [place] [address] Care Team Providers Care Board Writer Name Role Phone Dioni Maurice MD Primary Care Provider [phone] Reason for Visit * Reason Comments New Patient new patient Encounter Details Date Type Department Care Team (Late st Contact Info) Description 07/23/2021 3:15 PM JEWELRY ENGRAVER Office Visit [facility] Primary Care at [address] [address] Dioni Maurice MD [address] [place] [address] [address] [place] [address] Encounter for medical examination to establish care (Primary Dx); Cystic acne vulgaris; Screening, lipid; Infection of index finger; Weight loss, non-intentional Social History Tobacco Use Types Packs/Day Years [...] on file Legal Sex Male 2:40 PM JEWELRY ENGRAVER Gender Identity Not on file Sexual Orientation Not on file 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 on file Not on file documented as of this encounter Last Filed Vital Signs Vital Sign Reading Time Taken Comments Blood Pressure 114/70 07/23/2021 3:15 PM JEWELRY ENGRAVER Pulse 88 07/23/2021 3:15 PM JEWELRY ENGRAVER Temperature 36.5 ??C (97.7 ??F) 07/23/2021 3:15 PM CS T Respiratory Rate 16 07/23/2021 3:15 PM JEWELRY ENGRAVER Oxygen Saturation 98% 07/23/2021 3:15 PM JEWELRY ENGRAVER Inhaled Oxygen Concentration - - Weight 52.6 kg (116 lb) 07/23/2021 3:15 PM JEWELRY ENGRAVER Height 167.6 cm (5' 6 ) 07/23/2021 3:15 PM JEWELRY ENGRAVER Body Mass Index 18.72 07/23/2021 3:15 PM JEWELRY ENGRAVER documented in this encounter Patient Instructions * Patient Instructions* Dioni Maurice MD - 07/23/2021 3:15 PM JEWELRY ENGRAVER Awaiting labs Continue and finish keflex. Seemingly improving. The blister I would leave be, don't try to rupture. If we need to, we can get you in for incision and drainage if there is no further improvement by next week Metrogel trial ordered Weight loss may be a bit concerning; the baseline labs should be helpful in working that up a bit. Thanks for coming in today! My medical assistants and I are thankful you have trusted us with your care, and hope that you received EXCELLENT care today! Please do not hesitate to call if you have any questions or concerns at [phone]. You may receive a phone call, text, MYCHART message, or e-mail asking about your care today. We would love to hear your feedback on how EXCELLENT your care wastoday! Wishing you better health, always. Dr. Maurice LRY ENGRAVER LRY ENGRAVER documented in this encounter Ordered Prescriptions Prescription Sig Dispense Quantity Refills Last Filled Start Date End Date metroNIDAZOLE (METROGEL) 0.75 % gelIndications:Acn e Rosacea Apply twice daily to rosacea 45 g 2 07/23/2021 2 documented in this encounter Progress Notes * Dioni Maurice MD - 07/23/2021 3:15 PM CST Images from the original note were not included. SUBJECTIVE: Humphrey Brantley is a 35 y.o. male presenting today to establish care. had infection in left indiex finger, started on Keflex at urgent care ([place]) It's been 10 years since been to a doctor He was significantly obese, but has lost weight, dropping as low as 107 lbs. Current Outpatient Medications Medication Sig Dispense Refill ??? cephalexin (KEFLEX) 500 mg capsule ??? ibuprofen (ADVIL,MOTRIN) 800 mg tablet No current facility-administered medications for this visit. Allergies: Patient has no known allergies. Past Medical History: Diagnosis Date ??? Cystic acne vulgaris 07/23/2021 History reviewed. No pertinent surgical history. Family History Problem Relation Age of Onset ??? Cancer Other Family history of Cancer, unknown; ??? COPD Mother ??? Breast cancer Mother 49 ??? Suicide Completion Father 42 ??? Depression Father ??? Alcohol abuse Father ??? Substance Abuse Father ??? Lung cancer Maternal Grandmother ??? Brain cancer Maternal Grandmother ??? Throat cancer Maternal Grandfather ??? Brain cancer Maternal Grandfather ??? Emphysema Paternal Grandmother ??? ALS Paternal Grandfather 68 late 60s ??? ALS Father's Sister 69 late 60's Social History Tobacco Use ??? Smoking status: Current Every Day Smoker Types: Vaping ??? Smokeless tobacco: Never Used Vaping Use ??? Vaping Use: Every day ??? Substances: Nicotine, THC, CBD, Flavoring Substance Use Topics ??? Alcohol use: No ??? Drug use: Yes Frequency: 7.0 times per week Types: Marijuana Review of Systems Constitutional: Positive for weight loss. HENT: Negative. Eyes: Negative. Respiratory: Negative. Cardiovascular: Negative. Gastrointestinal: Negative. Genitourinary: Negative. Musculoskeletal: Negative. Skin: Negative. Positive for swelling left index finger, distally Neurological: Negative. Endo/Heme/Allergies: Negative. Psychiatric/Behavioral: Negative. Negative for depression. OBJECTIVE: BP 114/70 (BP Location: Left arm, Patient Position: Sitting) Pulse 88 Temp 36.5 ??C (97.7 ??F) (Temporal) Resp 16 Ht 167.6 cm (5' 6 ) Wt 52.6 kg (116 lb) SpO2 98% BMI 18.72 kg/m?? Physical Exam Vitals reviewed. Constitutional: Appearance: He is well-developed and normal weight. HENT: Head: Normocephalic and atraumatic. Right Ear: External ear normal. Left Ear: External ear normal. Eyes: Conjunctiva/sclera: Conjunctivae normal. Neck: Vascular: No carotid bruit. Cardiovascular: Rate and Rhythm: Normal rate and regular rhythm. Heart sounds: Normal heart sounds. No murmur heard. No friction rub. No gallop. Pulmonary: Effort: Pulmonary effort is normal. Breath sounds: Normal breath sounds. Abdominal: General: Bowel sounds are normal. Palpations: Abdomen is soft. Tenderness: There is no abdominal tenderness. Musculoskeletal: General: Normal range of motion. Right hand: Normal. Left hand: Swelling present. No deformity, tenderness or bony tenderness. Normal range of motion. Hands: Cervical back: Normal range of motion and neck supple. Right lower leg: No edema. Left lower leg: No edema. Skin: General: Skin is warm and dry. Findings: Acne present. Neurological: Mental Status: He is alert and oriented to person, place, and time. Cranial Nerves: No cranial nerve deficit. Diagnoses and all orders for this visit: Encounter for medical examination to establish care (Primary) Assessment & Plan: A initial well visit to establish care has been performed today. Humphrey Brantley is up to date on screening tests. He is in need of None- no screening indicated at this time- these have been ordered.He is up to date on needed preventative [...] that up a bit. Cystic acne vulgaris - metroNIDAZOLE (METROGEL) 0.75 % gel; Apply twice daily to rosacea Screening, lipid - Lipid panel; Future Infection of index finger - CBC with auto differential; Future - Comprehensive metabolic panel; Future Weight loss, non-intentional - TSH reflex to free T4; Future LRY ENGRAVER documented in this encounter Miscellaneous Notes * Assessment & Plan Note - Dioni Maurice MD - 07/26/2021 3:22 PM JEWELRY ENGRAVER Associated Problem(s): Encounter for medical examination to establish care A initial well visit to establish care has been performed today. Humphrey Brantley is up to date on screening tests. He is in need of None- no screening indicated at this time- these have been ordered.He is up to date on needed preventative [...] helpful in working that up a bit. LRY ENGRAVER LRY ENGRAVER documented in this encounter Plan of Treatment Not on file documented as of this encounter Results * TSH reflex to free T4 (07/23/2021 3:47 PM JEWELRY ENGRAVER) TSH 0.69 0.30 - 4.20 mcIUnit/mL JORDAN CORTES Blood 07/23/2021 3:47 PM JEWELRY ENGRAVER 07/23/2021 6:12 PM JEWELRY ENGRAVER us Dioni Maurice MD LAB BLOOD ORDERABLES Final Result Performing Organization Address City/State/ZIP Co mn Phone Number JORDAN CORTES [phone] Department [place] [address] * Lipid panel (07/23/2021 3:47 PM JEWELRY ENGRAVER) [facility] Signature Cholesterol 171 30 - 199 mg/dL JORDAN CORTES Comment: Interpretive Data Ages [...] on 2018. LDL, calculated 101 <=129 mg/dL JORDAN CORTES Comment: Interpretive Data Ages [...] revised on 2018. Non-HDL Cholesterol 118 mg/dL JORDAN Comment: Interpretive Data Ages < or = [...] 3 [facility] Blood 07/23/2021 3:47 PM JEWELRY ENGRAVER 07/23/2021 6:12 PM JEWELRY ENGRAVER us Dioni Maurice MD LAB [place]LOOD [place] [address] [address] Department [place] [address] * (ABNORMAL) Comprehensive metabolic panel (07/23/2021 3:47 PM JEWELRY ENGRAVER) Sodium 140 135 - 145 mmol/L CERNER [...] Units/L [facility] Blood 07/23/2021 3:47 PM JEWELRY ENGRAVER 07/23/2021 6:12 PM JEWELRY ENGRAVER Dioni Maurice MD LAB BLOOD ORDERABLES Final Result Performing Organization Address [facility] Co de Phone Number JORDAN CORTES [address] [employer] [place] [address] * CBC with auto differential (07/23/2021 3:47 PM JEWELRY ENGRAVER) WBC 7.0 3.8 - 9.9 K/cumm [facility] Hgb 14.1 13.0 - 17.5 g/dL [facility] Hct 43.1 38.9 - 50.3 % [facility] Plt 299 150 - 400 K/cumm [facility] MPV 9.6 9.1 - 12.3 fL [facility] RBC 4.91 4.30 - 5.80 M/cumm C[facility] MCV 87.8 81.3 - 96.4 fL [facility] MCH 28.7 27.1 - 33.3 pg [facility] MCHC 32.7 32.3 - 35.7 g/dL [facility] RDW CV 12.9 11.1 - 14.9 % [facility] RDW SD 41.6 35.7 - 48.1 fL [facility] NRBC abs 0.00 0.00 - 0.01 K/cumm [facility] Blood 07/23/2021 3:47 PM JEWELRY ENGRAVER 07/23/2021 6:12 PM JEWELRY ENGRAVER Dioni Maurice MD LAB BLOOD ORDERABLES Final Result Performing Organization Address [facility] Co de Phone Number JORDAN CORTES [address] [address] [facility] [employer] [place] [address] documented in this encounter Visit Diagnoses Diagnosis Encounter for medical examination to establish care- Primary Cystic acne vulgaris Other acne Screening, lipid Infection of index finger Weight loss, non-intentional Loss of weight documented in this encounter Historical Medications * This list may reflect changes made after this encounter. ibuprofen (ADVIL,MOTRIN) 800 mg tablet 07/18/2021 09/02/2021 cephalexin (KEFLEX) 500 mg capsule Take 1 capsule by mouth 3 (three) times a day 07/17/2021 07/27/2021 added in this encounter Care Teams Board Writer Relationship Specialty Start Date End Date Dioni Maurice MD PCP - General Family Medicine 07/23/21 04/03/22 documented as of this encounter
--- OUTSIDE RECORDS SUMMARY | 2024-09-01 | XMS_ITS | Encounter Summary ---
Author Organization [facility] Address [address] [facility] [address] [place] [address] Care Team Providers Care Linux Programmer Name Role Phone Dioni Maurice MD Primary Care Provider [phone] Reason for Visit * Reason Comments Follow-up f/u labs and finger infection Encounter Details Date Type Department Care Team (Late st Contact Info) Description 09/02/2021 3:30 PM INSOLE BEVELER Telemedicine [facility] Primary Care at [address] [address] Dioni Maurice MD [address] [place] [address] [address] [place] [address] Cystic acne vulgaris (Primary Dx); Hordeolum externum of left lower eyelid Social History Tobacco Use Types Packs/Day Years [...] on file Legal Sex Male 2:40 PM INSOLE BEVELER Gender Identity Not on file Sexual Orientation Not on file 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 on file Not on file documented as of this encounter Ordered Prescriptions Prescription Sig Dispense Quantity Refills Last Filled Start Date End Date hydrOXYzine (ATARAX) 25 mg tablet Take 1 tablet (25 mg total) by mouth 3 (three) times a day 90 tablet 09/02/2021 diclofenac sodium (VOLTAREN) 1 % gel Apply 2 g topically 4 (four) times a day 50 g 1 09/02/2021 erythromycin (ILOTYCIN) ophthalmic ointmentIndication s:Hordeolum externum of left lower eyelid Apply to left eye 4 (four) times a day for 7 days 3.5 g 09/02/2021 2 metroNIDAZOLE (METROGEL) 0.75 % gelIndications:Acn e Rosacea Apply twice daily to rosacea 45 g 2 09/02/2021 2 documented in this encounter Progress Notes * Doini Maurice MD - 09/02/2021 3:30 PM CST This was a telemedicine visit with Humphrey Brantley alone which took place via real-time video connection with [employer]. During the visit, I was located in the office and the patient was located at home in the state of [place]. The patient visit started at 330p and ended at 355p. My total encounter time on 09/02/2021 was 25 minutes which was spent in the activities documented in the note. This includes time spent prior to the visit and after the visit in direct care of the patient. This time does not include time spent in any separately reportable services.. The patient has been informed that the visit may not be secure and acknowledged the information. I have explained the option of participating in a telephone or video visit during the COVID-19 public health emergency to the patient. After being given an opportunity to ask questions about and discuss this type of visit, the patient verbally consented to proceeding with the telephone/video visit.The patient understands that this service replaces an office visit and they may be billed and/or responsible for any applicable copayments. The patient has been informed that the visit may not be secure and acknowledged the information. Subjective/Objective Patient ID: Humphrey Brantley is a 36 y.o. male. Chief Complaint Follow-up (f/u labs and finger infection) His insurance was cancelled, so he wasn't able to pick remover the metrogel; he costa new carrier now. Finger is better, but still some pain in knuckle Complains of recurrent stye in left lower eyelid. Tachycardia when he tries to quit marijuana Current Outpatient Medications: ??? ibuprofen (ADVIL,MOTRIN) 800 mg tablet, , Disp: , Rfl: ??? metroNIDAZOLE (METROGEL) 0.75 % gel, Apply twice daily to rosacea (Patient not taking: Reportedon 09/02/2021), Disp: 45 g, Rfl: 2 Review of Systems Constitutional: Positive for appetite change (decreased). Negative for fatigue and fever. Respiratory: Negative. Cardiovascular: Negative. Gastrointestinal: Positive for inconsistent bowel movements (soft to hard) Musculoskeletal: Negative for gait problem. Notes comtinued stiffness in 2nd MCP on left hand Skin: Negative for color change, pallor, rash and wound. Posiitve for acne Vitals The patient does not have a home blood pressure monitor There were no vitals taken for this visit. Physical Exam TELEHEALTH VISIT- UNABLE TO PERFORM Assessment/Plan Diagnoses and all orders for this visit: Cystic acne vulgaris (Primary) - metroNIDAZOLE (METROGEL) 0.75 % gel; Apply twice daily to rosacea Hordeolum externum of left lower eyelid - erythromycin (ILOTYCIN) ophthalmic ointment; Apply to left eye 4 (four) times a day for 7 days Other orders - diclofenac sodium (VOLTAREN) 1 % gel; Apply 2 g topically 4 (four) times a day re-sent metrogel Advised starting probiotic Advised trial of OTC Voltaren gel Wants to quit marijuana Dioni Maurice MD This office note has been partially dictated using [email or web address] software. LE BEVELER documented in this encounter Plan of Treatment Not on file documented as of this encounter Visit Diagnoses Diagnosis Cystic acne vulgaris- Primary Other acne Hordeolum externum of left lower eyelid documented in this encounter Discontinued Medications Medication Sig Discontinue Reason Start Date End Da te metroNIDAZOLE (METROGEL) 0.75 % gelIndications:Acne Rosacea Apply twice daily to rosacea Reorder 07/23/2021 09/02/2021 ibuprofen (ADVIL,MOTRIN) 800 mg tablet 07/18/2021 09/02/2021 documented as of this encounter Care Teams Linux Programmer Relationship Specialty Start Date End Date Dioni Maurice MD PCP - General Family Medicine 07/23/21 04/03/22 documented as of this encounter
--- OUTSIDE RECORDS SUMMARY | 2024-09-01 | XMS_ITS | Encounter Summary ---
Author Organization [facility] Address [address] [place] [address] Care Team Providers Care Sales Operations Director Name Role Phone Unavailable Primary Care Provider Unavailabl e Encounter Details Date Type Department Care Team ([facility] st Contact Info) Description 05/06/2007 9:38 AM CDT - 05/06/2007 4:00 PM CDT Hospital Encounter [facility] Social History Tobacco Use Types Packs/Day Years Used Date Smoking Tobacco: Never Assessed Sex and Gender Information Value Date Recorded Sex Assigned at Not on file Legal Sex Male 2:40 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
--- OUTSIDE RECORDS SUMMARY | 2024-09-01 | XMS_ITS | Encounter Summary ---
Author Organization [facility] Healthcare Address [address] [place] [address] Care Team Providers Care Airborne Operations Superintendent Name Role Phone Unavailable Primary Care Provider Unavailabl e Encounter Details Date Type Department Care Team (Late st Contact Info) Description 07/22/2009 5:30 AM MANAGER CONTRACT - 07/22/2009 9:35 AM MANAGER CONTRACT Hospital Encounter [facility] Rosanne Jdae MD [address] [facility] [place] [address] Abdominal pain; Tobacco use disorder Social History Tobacco Use Types Packs/Day Years Used Date Smoking Tobacco: Never Assessed Sex and Gender Information Value Date Recorded Sex Assigned at Not on file Legal Sex Male 2:40 PM MANAGER CONTRACT Gender Identity Not on file Sexual Orientation Not on file documented as of this encounter Plan of Treatment Not on file documented as of this encounter Visit Diagnoses Diagnosis Abdominal pain Abdominal pain, unspecified site Tobacco use disorder documented in this encounter
== END 2024-08-24 23:19 | disposition left against medical advice (07) ==
PROVIDERS: Emergency Provider Emergency Medicine; PCP Emergency Medicine
DX: R42 Dizziness and giddiness (principal)
CPT/HCPCS: 93005; 99199

== ENCOUNTER 2024-10-19 08:44 | Outpatient (CLI) | payer OTHER, SELFPAY ==
--- OUTSIDE RECORDS SUMMARY | 2024-10-19 08:47 | XMS_ITS | Referral Summary ---
Author Organization [address] Address [address] [place] [address] Care Team Providers Care Automotive Warranty Administrator Name Role Phone Red Rowan MD Primary Care Provider [phone] Encounters Date Type Department Care Team Description 08/26/2024 4:16 AM CHAIN PEGGER - 08/26/2024 4:41 AM CHAIN PEGGER Emergency [facility] Emergency Department [address] [place] [address] Discharge Disposition: Left without being seen 08/25/2024 2:45 PM CHAIN PEGGER Office Visit 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 on file Not on file Last Filed Vital Signs Vital Sign Reading Time Taken Comments Blood Pressure 145/74 08/25/2024 2:57 PM CHAIN PEGGER Pulse 90 08/25/2024 2:57 PM CHAIN PEGGER Temperature 37.2 C (99 F) 08/25/2024 2:57 PM CHAIN PEGGER Respiratory Rate 18 08/25/2024 2:57 PM CHAIN PEGGER Oxygen Saturation 98% 08/25/2024 2:57 PM CHAIN PEGGER Inhaled Oxygen Concentration - - Weight 63 kg (139 lb) 08/25/2024 2:57 PM CHAIN PEGGER Height 167.6 cm (5' 5.98 ) 08/25/2024 2:57 PM CS T Body Mass Index 22.45 08/25/2024 2:57 PM CHAIN PEGGER Plan of Treatment Not on file Procedures Procedure Name Priority Date/Time Associated Diagnosis Comments POC INFLUENZA A/B, COVID-19 ANTIGEN Routine 08/25/2024 3:17 PM CHAIN PEGGER Dizziness from Last 3 Months Results * POC Influenza A/B, COVID-19 antigen (08/25/2024 3:17 PM CHAIN PEGGER) Influenza A Ag, POC Negative Negative [facility] Influenza B Ag, POC Negative Negative [facility] COVID-19 Ag POC Presumptive Negative Presumptive Negative, Invalid [facility] Nasal 08/25/2024 3:17 PM CHAIN PEGGER Hoa CASTANON POINT OF CARE TEST ORDER JENN Final Result Performing Organization Address City/State/[facility] Co de Phone Number [facility] [address] [place] [address], [facility] from Last 3 Months Insurance CHOICE PLUS Care Teams Automotive Warranty Administrator Relationship Specialty Start Date End Date Red Rowan MD [address] [place], [place] [id number] PCP - General Family Medicine 11/27/23
--- OUTSIDE RECORDS SUMMARY | 2024-10-19 08:47 | XMS_ITS | Continuity of Care Document ---
Author Organization [facility] Address [address] [place] [address] [place] [address] Phone Care Team Providers Care Guest Relations Coordinator Name Role Phone Red Rowan MD Unavailable Unavailable Allergies, Adverse Reactions, Alerts Substance Reaction Status Criticality No Known Allergies Active No Inform ation Procedures Procedure Date OFFICE/OUTPATIENT VISIT, EST OFFICE/OUTPATIENT VISIT, EST PREV VISIT, EST, AGE 18-39 OFFICE/OUTPATIENT VISIT, EST PREV VISIT, NEW, AGE 18-39 OFFICE/OUTPATIENT VISIT, NEW Advance Directives Directive Yes / No Effective Date File Name No Information Encounters Encounter Description Practice Location Reason(s) For Visit Diagnoses Date Provider Providers Copied on Encounter OFFICE/OUTPA TIENT VISIT, EST [facility], [address] [place], [id number], tel:[phone] [facility] anxiety1 (chief complaint) sick1 (chief complaint) MononeuropathyGener alized Anxiety DisorderPalpitation s 4 Harpal Moon. [address], [address] [place], [address] , [place]. tel:[phone] OFFICE/OUTPA TIENT VISIT, [facility], [address] [place], [id number], [place] tel:[phone] [facility] GI1 (chief complaint) moles1 (chief complaint) Mixed irritable bowel syndromeNevus, non-neoplastic 4 Harpal Moon. [address], [address], [place], [place], [id number] , [place]. tel:[phone] PREV VISIT, EST, AGE 18-39 [facility], [address] [place], [id number], tel:[phone] [facility] Medicine physical (chief complaint) Encounter for general adult medical examination without abnormal findings Apr-0 4 Rowan Red. [address], [place], [place], [id number] , [place]. tel:[phone] OFFICE/OUTPA TIENT VISIT, EST [facility], [address] [place], [id number], [place] tel:[phone] [facility] Medicine HLP (chief complaint) Iron (chief complaint) anxiety1 (chief complaint) palpitatio n1 (chief complaint) testicular pain1 (chief complaint) abd pain1 (chief complaint) Early satietyGeneralized Anxiety DisorderMixed irritable bowel syndromeRight testicular painMixed hyperlipidemiaIron deficiencyPalpitati ons May- 3 Harpal Moon. [address], [place], [place], [address] , [place]. [phone] PREV VISIT, NEW, AGE 18-39 [facility], [address] [place], [id number], [place] tel:[phone] [facility] Medicine physical (chief complaint) Encounter for general adult medical exam w abnormal findingsMixed irritable bowel syndromeEarly satietyRight testicular painOther insomniaGeneralized Anxiety Disorder Nov-2 3 Harpal Moon. [address], [place], [place], [address] , [place]. [phone] Family History Family Member Type Diagnosis Age At Onset Father Problem commit suicide 40s Mother Problem breast CA remission Paternal grandfather Problem of ALS Mother Problem emphysema Payers Payer name Insurance type Covered democrat ID Authoriza tion(s) No Information Social History Type Description Quantity Date Captured Comments Alcohol Use Details wine 1 drink rarely Caffeine Use Details Unknown Tobacco Use Status Current non-smoker Smoking Status Never smoker Sex Male Vital Signs Date / Time: Height Weight BMI Pulse Rate Blood Pressure Temperature Respiratory Rate Body Surface Area Head Circumference BMI percentile Pulse Ox Inhaled Ox 3:47 PM 66.00 in 139.40 lbs 22.5 0 kg/m eter (2) 84 /min 130/60 mm[Hg] 98.2 F 16 /min Chief Complaint And Reason For Visit From encounter dated '08/29/2024 15:36'. anxiety1 (chief complaint). Description: Pt has chronic anxiety. Pt denies any depression or any suicidal or homicidal thought Pt denies any crying spells Pt failed lexapro Pt has beto with psychiatrist next week and he will do genetic testing with psychiatrist and he is doing counseling as well. Ptstates that his mood is ok now sick1 (chief complaint). Description: Pt states that he has been feeling very anxious and having panic attacks after the elections. Pt has been feeling very anxious and he feels frequent bilateral hand numbness and tingling, some fatigue and poor sleep, palpitations since the elections. pt has frequent dull headache which is pressure like on right side of scalp. Pt went to ER last thursday and he had negative CT of brain, blood work and also EKG and heart monitor and chest x ray. Pt was told thatthe above symptoms are anxiety related. pt denies any acute symptoms Plan Of Treatment Date Type Action Status Referral Referred To: García Lott [address] [place] [address], [phone] Ordered: Referrals: García Lott. Evaluate and treat ordered Referral Ordered: SENSE NERVE CONDUCTION TEST ordered Referral Ordered: Dermatology (related to Nevus, non-neoplastic) ordered Referral Ordered: Referrals: Dermatology. Evaluate and treat ordered Referral Ordered: COLONOSCOPY AND BIOPSY ordered Referral Ordered: US TESTES-SCROTAL ordered Referral Ordered: OPERATIVE UPPER GI ENDOSCOPY ordered Referral Ordered: US EXAM, ABDOM, COMPLETE ordered History Of Present Illness Encounter Date Complaint History Of Prese nt Illness anxiety1 Pt has chronic a nxiety. Pt denies any depression or any suicidal or homicidal thought Pt denies any crying spells Pt failed lexapro Pt has beto with psychiatrist next week and he will do genetic testing with psychiatrist and he is doing counseling as well. Pt states that his mood is ok now sick1 Pt states that h raymond has been feeling very anxious and having panic attacks after the elections. Pt has been feeling very anxious and he feels frequent bilateral hand numbness and tingling, some fatigue and poor sleep, palpitations since the elections. pt has frequent dull headache which is pressure like on right side of scalp. Pt went to ER last thursday and he had negative CT of brain, blood work and also EKG and heart monitor and chest x ray. Pt was told that the above symptoms are anxiety related. pt denies any acute symptoms GI1 Pt c/o early sat iety and diarrhea and abdominal bloating. Pt had negative EGD and colonoscopy Pt had negative abdominal ultrasound. Pt currently feels more reassured since the endoscopy and he feels improvement of GI symptoms Pt denies any blood in stool .Pt denies any weight loss. moles1 Pt c/o multiple nevus on face and also on torso and some of them are growing in size Pt denies any bleeding physical Pt needs annual physical, Pt has [...] long wait Pt denies any recurrent symptoms. HLP Pt has HLP Pt is working on diet Iron Pt has mildly lo w iron saturation. Pt denies any blood in stool or any other bleeding .Pt denies any fatigue. Pt denies any sob anxiety1 Pt has chronic a nxiety and mild depression Pt denies any suicidal or homicidal thought Pt denies any crying spells . Pt recently quit marijuana ane he feels very anxious as well palpitation1 Pt woke up sever al nights ago with palpitation and severe anxiety Pt denies any sob or chest pain Pt denies any exertional symptoms. testicular pain1 Pt states that testicular pain resolved. Pt had normal ultrasound abd pain1 Pt denies any ab d pain Pt states that postprandial nausea and pain resolved Pt denies any early satiety ,Pt still has bloating and mixed diarrhea and constipation without blood in stool. Pt has not done EGD and colonoscopy yet physical Pt needs annual physical Pt notices [...] No Information Assessments Type Assessment Date assessment Mononeuropathy assessment Generalized Anxiety Disorder Jul assessment Palpitations Mental Status Date Cognitive Assessment Orientation - [place] ed to time, place, person, situation.
--- OUTSIDE RECORDS SUMMARY | 2024-10-19 08:47 | XMS_ITS | Clinical Summary ---
Author Organization [facility] [address] Address [address] [place] [address] Care Team Providers Care Line Pilot Name Role Phone Red Rowan MD Primary Care Provider [phone] Allergies No known active allergies Medications diclofenac [...] 07/26/2021 Assessment & Plan (07/26/2021 3:[address]): A initial well visit to establish care has been performed today. Humphrey Salgado Karon is up to date on screening tests. [...] Department Care Team Description 08/26/2024 4:[address] - 08/26/2024 4:[address] Emergency [facility] Emergency Department [address] [place] [address] Discharge Disposition: Left without being seen 08/25/2024 2:[address] Office Visit [facility] Convenient Care at [address] [address] Hoa Gonzalez PA Dizziness (Primary Dx); Paresthesias from Last 3 Months Immunizations Immunization Administration Dates Next Due Influenza, [...] file Legal Sex Male 2:[address] Gender Identity Not on file Sexual Orientation Not on file 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 on file Not on file Obstetrics History Last Filed Vital Signs Vital Sign Reading Time Taken Comments Blood Pressure 145/74 08/25/2024 2:[address] Pulse 90 08/25/2024 2:[address] Temperature 37.2 C (99 F) 08/25/2024 2:[address] Respiratory Rate 18 08/25/2024 2:[address] Oxygen Saturation 98% 08/25/2024 2:[address] Inhaled Oxygen Concentration - - Weight 63 kg (139 lb) 08/25/2024 2:[address] Height 167.6 cm (5' 5.98 ) 08/25/2024 2:57 PM CS T Body Mass Index 22.45 08/25/2024 2:[address] Plan of Treatment Health Maintenance Due Date [...] A/B, COVID-19 ANTIGEN Routine 08/25/2024 3:[address] Dizziness from Last 3 Months Results * POC Influenza A/B, COVID-19 antigen (08/25/2024 3:[address]) Influenza A Ag, POC Negative Negative [facility] Influenza B Ag, POC Negative Negative [facility] COVID-19 Ag POC Presumptive Negative Presumptive Negative, Invalid [facility] Nasal 08/25/2024 3:[address] us Hoa CASTANON POINT OF CARE TEST ORDER JENN Final Result [facility] [address] [place] [address], [email or web address] from Last 3 Months Insurance CHOICE PLUS [facility] HMO/PPO [place]: [place] [address] Care Teams Line Pilot Relationship Specialty Start Date End Date Red Rowan MD [address] [facility] [address] [place] [address] PCP - General Family Medicine 11/27/23
[2024-10-19 11:25] LABS: Alanine Aminotransferase 57 U/L (6-50); Albumin Level 4.8 g/dL (3.5-5.1); Alkaline Phosphatase 120 U/L (38-126); Anion Gap 10 mmol/L (4-12); Aspartate Amino Transferase 35 U/L (17-59); Bilirubin,Total 0.5 mg/dL (0.2-1.3); Blood Urea Nitrogen 9 mg/dL (9-20); Calcium 9.8 mg/dL (8.4-10.2); Carbon Dioxide 29 mmol/L (22-30); Chloride 102 mmol/L (98-107); Cholesterol 311 mg/dL (0-200); Estimated Glomerular Filt Rate > 60; Glucose 101 mg/dL (65-110); HDL Direct 78 mg/dL; Potassium 4.2 mmol/L (3.4-5.0); Sodium 141 mmol/L (137-145); Triglycerides 93 mg/dL (<150)
--- NOTE | 2024-10-19 11:30 | NEURO_ITS ---
Impression: # Complains of numbness of hands. Non-diabetic. ? # Mild evolving Carpal Tunnel Syndrome. ? # No ulnar neuropathy. ? # Normal needle/EMG. ? # Patient concerned about ALS. This limited exam does not reveal any abnormalities ? that are suggestive of ALS. Clinical correlation recommended. Nerve Conduction Studies Anti Sensory Summary Table ?Stim Site NR Peak (ms) P-T Amp (?V) Site1 Site2 Delta-P (ms) Dist (cm) Shayne (m/s) Left Median Anti Sensory (2-3nd Digit) Wrist ? 2.6 75.9 Wrist 2-3nd Digit 2.6 14.0 54 Wrist ? 2.7 72.4 Wrist 2-3nd Digit 2.6 14.0 54 Right Median Anti Sensory (2-3nd Digit) Wrist ? 2.8 65.0 Wrist 2-3nd Digit 2.8 14.0 50 Wrist ? 2.8 62.2 Wrist 2-3nd Digit 2.8 14.0 50 Left Radial Anti Sensory (Base 1st Digit) Wrist ? 2.0 38.6 Wrist Base 1st Digit 2.0 0.0 Right Radial Anti Sensory (Base 1st Digit) Wrist ? 2.5 20.5 Wrist Base 1st Digit 2.5 0.0 Left Ulnar Anti Sensory (5th Digit) Wrist ? 2.2 62.3 Wrist 5th Digit 2.2 14.0 64 Right Ulnar Anti Sensory (5th Digit) Wrist ? 2.3 73.4 Wrist 5th Digit 2.3 14.0 61 Motor Summary Table ?Stim Site NR Onset (ms) O-P Amp (mV) Site1 Site2 Delta-0 (ms) Dist (cm) Shayne (m/s) Left Median Motor (Abd Poll Brev) Wrist ? 3.6 5.0 Elbow Wrist 4.4 26.0 59 Elbow ? 8.0 5.8 Right Median Motor (Abd Poll Brev) Wrist ? 3.0 4.5 Elbow Wrist 5.0 29.0 58 Elbow ? 8.0 7.0 Left Ulnar Motor (Abd Dig Minimi) Wrist ? 2.5 7.7 A Elbow Wrist 4.9 29.0 59 A Elbow ? 7.4 6.7 Right Ulnar Motor (Abd Dig Minimi) Wrist ? 2.3 6.6 A Elbow Wrist 5.2 31.0 60 A Elbow ? 7.5 4.7 F Wave Studies ?NR F-Lat (ms) L-R F-Lat (ms) Left Median (Mrkrs) (Abd Poll Brev) ? 26.80 0.39 Right Median (Mrkrs) (Abd Poll Brev) ? 26.41 0.39 Left Ulnar (Mrkrs) (Abd Dig Min) ? 26.76 0.12 Right Ulnar (Mrkrs) (Abd Dig Min) ? 26.88 0.12 EMG ?Side Muscle Nerve Root Ins Act Fibs Amp Dur Recrt Comment Right 1stDorInt Ulnar C8-T1 Nml Nml Nml Nml Nml Right Ext Indicis Radial (Post Int) C7-8 Nml Nml Nml Nml Nml Right Ext Digitorum Radial (Post Int) C7-8 Nml Nml Nml Nml Nml Right BrachioRad Radial C5-6 Nml Nml Nml Nml Nml Right PronatorTeres Median C6-7 Nml Nml Nml Nml Nml Right Abd Poll Brev Median C8-T1 Nml Nml Nml Nml Nml Right ABD Dig Min Ulnar C8-T1 Nml Nml Nml Nml Nml Left 1stDorInt Ulnar C8-T1 Nml Nml Nml Nml Nml Left Ext Indicis Radial (Post Int) C7-8 Nml Nml Nml Nml Nml Left Ext Digitorum Radial (Post Int) C7-8 Nml Nml Nml Nml Nml Left BrachioRad Radial C5-6 Nml Nml Nml Nml Nml Left PronatorTeres Median C6-7 Nml Nml Nml Nml Nml Left Abd Poll Brev Median C8-T1 Nml Nml Nml Nml Nml Left ABD Dig Min Ulnar C8-T1 Nml Nml Nml Nml Nml MTDD
[2024-10-19 11:35] LABS: LDL Cholesterol Direct 198 mg/dL
== END 2024-10-19 08:45 | disposition home or self-care (01) ==
PROVIDERS: Internal Medicine Cardiovascular Disease; PCP Emergency Medicine; Visit Provider Emergency Medicine
DX: G58.9 Mononeuropathy, unspecified (principal); E78.5 Hyperlipidemia, unspecified
CPT/HCPCS: 36415; 80053; 80061; 84443; 95886; 95911

== ENCOUNTER 2024-11-01 10:19 | Outpatient (CLI) | payer OTHER, SELFPAY | END 2024-11-01 10:20 | disposition home or self-care (01) | PROVIDERS: PCP Emergency Medicine; Visit Provider Internal Medicine Cardiovascular Disease | DX: R06.09 Other forms of dyspnea (principal) | CPT/HCPCS: 93306 ==

== ENCOUNTER 2024-11-28 14:17 | Outpatient (CLI) | payer OTHER, SELFPAY ==
[2024-11-28 15:36] LABS: Alanine Aminotransferase 54 U/L (6-50); Albumin Level 4.7 g/dL (3.5-5.1); Alkaline Phosphatase 116 U/L (38-126); Anion Gap 8 mmol/L (4-12); Aspartate Amino Transferase 28 U/L (17-59); Bilirubin,Total 0.5 mg/dL (0.2-1.3); Blood Urea Nitrogen 12 mg/dL (9-20); Calcium 9.4 mg/dL (8.4-10.2); Carbon Dioxide 29 mmol/L (22-30); Chloride 103 mmol/L (98-107); Cholesterol 147 mg/dL (0-200); Estimated Glomerular Filt Rate > 60; Glucose 104 mg/dL (65-110); HDL Direct 52 mg/dL; Potassium 4.3 mmol/L (3.4-5.0); Sodium 140 mmol/L (137-145); Triglycerides 44 mg/dL (<150)
--- OUTSIDE RECORDS SUMMARY | 2024-11-28 15:45 | XMS_ITS | Clinical Summary ---
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 on file Not on file Obstetrics History Last Filed Vital Signs Vital Sign Reading Time Taken Comments Blood Pressure 145/74 08/25/2024 2:57 PM MANAGER GAMING Pulse 90 08/25/2024 2:57 PM MANAGER GAMING Temperature 37.2 C (99 F) 08/25/2024 2:57 PM MANAGER GAMING Respiratory Rate 18 08/25/2024 2:57 PM MANAGER GAMING Oxygen Saturation 98% 08/25/2024 2:57 PM MANAGER GAMING Inhaled Oxygen Concentration - - Weight 63 kg (139 lb) 08/25/2024 2:57 PM MANAGER GAMING Height 167.6 cm (5' 5.98 ) 08/25/2024 2:57 PM CS T Body Mass Index 22.45 08/25/2024 2:57 PM MANAGER GAMING Plan of Treatment Health Maintenance Due Date Last Done Comments Hepatitis C Screening 1984 DTaP/Tdap/Td Vaccine (1 - Tdap) 1995 Hepatitis B Screening 2002 Pneumococcal vaccine <65 (1 of 2 - PCV) 2003 Depression Screening 07/23/2022 07/23/2021, 07/23/2021 Regular Well Visit/Exam 18-64 07/23/2022 07/23/2021 Covid-19 Vaccine ( season) 2024 07/20/2021, 11/02/2020, 10/05/2020 Influenza Vaccine (#1) 2024 06/14/2021 HPV Vaccines Aged Out No longer eligi ble based on patient's age to complete this topic Varicella Vaccines Discontinued Insurance [facility] H[facility] Address: [facility] [address] [place] [address] Care Teams Entry Level Relationship Specialty Start Date End Date Red Rowan MD [address] [facility] [facility] [address] [place] [address] PCP - General Family Medicine 11/27/23
--- OUTSIDE RECORDS SUMMARY | 2024-11-28 15:45 | XMS_ITS | Referral Summary ---
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 Not on file Last Filed Vital Signs Vital Sign Reading Time Taken Comments Blood Pressure 145/74 08/25/2024 2:57 PM VP DESIGN Pulse 90 08/25/2024 2:57 PM VP DESIGN Temperature 37.2 C (99 F) 08/25/2024 2:57 PM VP DESIGN Respiratory Rate 18 08/25/2024 2:57 PM VP DESIGN Oxygen Saturation 98% 08/25/2024 2:57 PM VP DESIGN Inhaled Oxygen Concentration - - Weight 63 kg (139 lb) 08/25/2024 2:57 PM VP DESIGN Height 167.6 cm (5' 5.98 ) 08/25/2024 2:57 PM CS T Body Mass Index 22.45 08/25/2024 2:57 PM VP DESIGN Plan of Treatment Not on file Insurance [facility] CHO[facility] H[facility]/PPO Address: [facility] [address] [place] [address] Care Teams Fender Mechanic Apprentice Relationship Specialty Start Date End Date Red Rowan MD [address] [place] [address] PCP - General Family Medicine 11/27/23
[2024-11-28 15:47] LABS: LDL Cholesterol Direct 74 mg/dL
== END 2024-11-28 14:18 | disposition home or self-care (01) ==
LOC: ANHLAB 14:19
PROVIDERS: PCP Emergency Medicine; Visit Provider Internal Medicine Cardiovascular Disease
DX: E78.5 Hyperlipidemia, unspecified (principal)
CPT/HCPCS: 36415; 80053; 80061